=== PATIENT | female | born 1960 | race Caucasian/White ===

== ENCOUNTER → 2017-07-31 | Outpatient (CLI) | payer MEDICARE, OTHER ==
[~2017-07-31] MED LIST: /AMLO25TA PO; /LINE60TA PO; /METO25TAB PO; /MOXI40TA PO; /PRAV20TA PO; ACET50TA PO; AMLO2.5T OR; ASPI81TA83 OR; BACI50OI TOP; BACIDCA PO; CEFA1VL IV; CEFT2VL IV; DIOV320T PO; DIOVAN PO; DOXY150C PO; FERR325T OR; FLUC100T PO; FURO20TA2 PO; FURO40TA2 OR; GLIM1TAB OR; GLIM1TAB PO; HEPA1010VL IV; HYDR20IN2 PO; HYDR50TA PO; INSUHUMDS SC; INSULANT SC; INVANZ IV; IRON CR PO; KEFL500C17 PO; LANTUS INSULIN SC; LASI40TA PO; LISI10TA4 PO; MAG-OX PO; MARI2.5C PO; METF500T PO; OCEA0.65; PERC5TAB8 PO; PRAV20TA2 OR; SALI0.9I2 IV; Silvadene TOP; ULTR50TA PO
[2017-07-31 11:33] LABS: WHITE BLOOD COUNT 8.5 K/mm3 (4.0-10.0)
[2017-07-31 11:34] LABS: MEAN CORPUSCULAR HEMOGLOBIN 27.5 pg (27.0-33.0); MEAN CORPUSCULAR HGB CONC 31.9 g/dl (32.0-36.5); MEAN CORPUSCULAR VOLUME 86.1 fl (80.0-96.0); RED CELL DISTRIBUTION WIDTH 14.8 % (11.5-14.5)
[2017-07-31 13:32] LABS: ALBUMIN 3.8 GM/DL (3.2-5.2); ALBUMIN/GLOBULIN RATIO 0.97 (1.00-1.93); BILIRUBIN,TOTAL 0.4 MG/DL (0.2-1.0); CALCIUM LEVEL 8.9 MG/DL (8.5-10.1); CREATININE FOR GFR 1.71 MG/DL (0.55-1.02); GLOMERULAR FILTRATION RATE 32.6 (>51); POTASSIUM SERUM 4.5 MEQ/L (3.5-5.1); TOTAL PROTEIN 7.7 GM/DL (6.4-8.2)
== END ==
LOC: M LAB 09:35
PROVIDERS: ATTEND Family Medicine
DX: E11.9 Type 2 diabetes mellitus without complications (principal)

== ENCOUNTER → 2017-12-18 | Outpatient (CLI) | payer MEDICARE ==
[2017-12-18 11:10] LABS: ESTIMATED AVERAGE GLUCOSE 223 MG/DL (60-110); HEMOGLOBIN A1c 9.4 %
[2017-12-18 11:15] LABS: ANION GAP 7 MEQ/L (8-16); BLOOD UREA NITROGEN 39 MG/DL (7-18); CALCIUM LEVEL 8.7 MG/DL (8.5-10.1); CARBON DIOXIDE LEVEL 26 MEQ/L (21-32); CHLORIDE LEVEL 105 MEQ/L (98-107); GLOMERULAR FILTRATION RATE 32.9 (>51); GLUCOSE, FASTING 160 MG/DL (70-100); POTASSIUM SERUM 4.4 MEQ/L (3.5-5.1); SODIUM LEVEL 138 MEQ/L (136-145)
== END ==
LOC: M LAB 10:14
DX: Z01.818 Encounter for other preprocedural examination (principal); E11.9 Type 2 diabetes mellitus without complications
CPT/HCPCS: 83036

== ENCOUNTER → 2018-07-10 | Outpatient (CLI) | payer MEDICARE ==
[2018-07-10 10:18] LABS: ESTIMATED AVERAGE GLUCOSE 223 MG/DL (60-110); HEMOGLOBIN A1c 9.4 %
[2018-07-10 10:21] LABS: ALBUMIN 3.7 GM/DL (3.2-5.2); ALBUMIN/GLOBULIN RATIO 1.03 (1.00-1.93); ALKALINE PHOSPHATASE 123 U/L (45-117); ALT/SGPT 26 U/L (12-78); ANION GAP 10 MEQ/L (8-16); AST/SGOT 13 U/L (7-37); BILIRUBIN,TOTAL 0.3 MG/DL (0.2-1.0); BLOOD UREA NITROGEN 75 MG/DL (7-18); CALCIUM LEVEL 8.6 MG/DL (8.5-10.1); CARBON DIOXIDE LEVEL 19 MEQ/L (21-32); CHLORIDE LEVEL 112 MEQ/L (98-107); CHOLESTEROL LEVEL 214 MG/DL (<200); CHOLESTEROL RISK RATIO 5.487 (<5); CREATININE FOR GFR 2.25 MG/DL (0.55-1.30); GLOMERULAR FILTRATION RATE 23.7 (>51); GLUCOSE, FASTING 85 MG/DL (70-100); HDL CHOLESTEROL 39 MG/DL (>40); LDL CHOLESTEROL 136.6 MG/DL (<100); NON-HDL-C 175 MG/DL; POTASSIUM SERUM 4.9 MEQ/L (3.5-5.1); SODIUM LEVEL 141 MEQ/L (136-145); TOTAL PROTEIN 7.3 GM/DL (6.4-8.2); TRIGLYCERIDES LEVEL 192 MG/DL (<150)
== END ==
LOC: M LAB 08:50
DX: E11.9 Type 2 diabetes mellitus without complications (principal)
CPT/HCPCS: 80053

== ENCOUNTER → 2018-08-08 | Outpatient (CLI) | payer MEDICARE ==
[2018-08-08 12:25] LABS: ANION GAP 6 MEQ/L (8-16); BLOOD UREA NITROGEN 49 MG/DL (7-18); CALCIUM LEVEL 8.9 MG/DL (8.5-10.1); CARBON DIOXIDE LEVEL 29 MEQ/L (21-32); CHLORIDE LEVEL 106 MEQ/L (98-107); CREATININE FOR GFR 2.25 MG/DL (0.55-1.30); GLOMERULAR FILTRATION RATE 23.7 (>51); GLUCOSE, FASTING 132 MG/DL (70-100); POTASSIUM SERUM 5.9 MEQ/L (3.5-5.1); SODIUM LEVEL 141 MEQ/L (136-145)
== END ==
LOC: M LAB 11:31
DX: I10 Essential (primary) hypertension (principal)
CPT/HCPCS: 80048

== ENCOUNTER 2018-09-01 09:36 | Emergency (ER) | payer MEDICARE ==
[2018-09-01 10:03] LABS: BASO # 0.1 10^3/uL (0.0-0.2); BASO % 0.5 % (0.0-1.0); EOS # 0.5 10^3/uL (0.0-0.50); EOS % 5.2 % (0.0-3.0); HEMATOCRIT 33.8 % (36.0-47.0); HEMOGLOBIN 10.5 g/dl (12.0-15.5); IMMATURE GRANULOCYTE % 0.4 % (0-3.0); LYMPH # 2.2 10^3/uL (1.5-4.5); LYMPH % 23.1 % (24.0-44.0); MEAN CORPUSCULAR HEMOGLOBIN 27.3 pg (27.0-33.0); MEAN CORPUSCULAR HGB CONC 31.1 g/dl (32.0-36.5); MONO # 0.7 10^3/uL (0.0-0.8); MONO % 7.1 % (0.0-5.0); NEUTROPHILS # 5.9 10^3/uL (1.8-7.7); NEUTROPHILS % 63.7 % (36.0-66.0); PLATELET COUNT, AUTOMATED 340 10^3/uL (150-450); RED BLOOD COUNT 3.84 10^6/uL (4.00-5.40); RED CELL DISTRIBUTION WIDTH 14.5 % (11.5-14.5); WHITE BLOOD COUNT 9.3 10^3/uL (4.0-10.0)
[2018-09-01 10:38] LABS: ALBUMIN 3.8 GM/DL (3.2-5.2); ALKALINE PHOSPHATASE 116 U/L (45-117); ALT/SGPT 35 U/L (12-78); ANION GAP 8 MEQ/L (8-16); AST/SGOT 23 U/L (7-37); BILIRUBIN,DIRECT < 0.1 MG/DL (0.0-0.2); BILIRUBIN,TOTAL 0.2 MG/DL (0.2-1.0); BLOOD UREA NITROGEN 31 MG/DL (7-18); CALCIUM LEVEL 9.1 MG/DL (8.5-10.1); CARBON DIOXIDE LEVEL 25 MEQ/L (21-32); CHLORIDE LEVEL 107 MEQ/L (98-107); CREATININE FOR GFR 1.81 MG/DL (0.55-1.30); GLOMERULAR FILTRATION RATE 30.5 (>51); GLUCOSE, FASTING 106 MG/DL (70-100); SODIUM LEVEL 140 MEQ/L (136-145)
[2018-09-01 12:29] LABS: BEDSIDE GLUCOSE 175 MG/DL (70-105)
[2018-09-03 11:20] LABS: BEDSIDE GLUCOSE 100 MG/DL (70-105)
[2018-09-03 11:20] LABS: BEDSIDE GLUCOSE 140 MG/DL (70-105)
[2018-09-03 11:20] LABS: BEDSIDE GLUCOSE 111 MG/DL (70-105)
== END 2018-09-01 12:44 | disposition home or self-care (01) ==
LOC: M ED 09:36
DX: T38.3X1A Poisoning by insulin and oral hypoglycemic [antidiabetic] drugs, accidental (unintentional), initial encounter (principal); Y92.9 Unspecified place or not applicable; Y93.9 Activity, unspecified; E11.9 Type 2 diabetes mellitus without complications; D50.9 Iron deficiency anemia, unspecified; Z79.82 Long term (current) use of aspirin; Z79.4 Long term (current) use of insulin; Z79.899 Other long term (current) drug therapy; Z88.1 Allergy status to other antibiotic agents
CPT/HCPCS: 80076

== ENCOUNTER → 2019-05-06 | Outpatient (CLI) | payer MEDICARE ==
[~2019-05-06] MED LIST changes: -/AMLO25TA PO; -/LINE60TA PO; -/METO25TAB PO; -/MOXI40TA PO; -/PRAV20TA PO; -ACET50TA PO; +AVEL1TAB2 PO; +BACI500O74 TOP; -BACI50OI TOP; +CEFA1INJ IV; -CEFA1VL IV; +CEFT1INJ65 IV; -CEFT2VL IV; +HYDR-4267 PO; -HYDR50TA PO; +LANTINJ4 SC; +LISI10TA4; +MAPA500T17 PO; +METO1TAB87 PO; +NORV2TAB PO; +PRAV1TAB39 PO; +ZYVO100T PO
[2019-05-06 14:07] LABS: CALCIUM LEVEL 8.6 MG/DL (8.8-10.2); CREATININE FOR GFR 1.98 MG/DL (0.55-1.30); GLOMERULAR FILTRATION RATE 27.4 (>45); POTASSIUM SERUM 4.6 MEQ/L (3.5-5.1)
== END ==
LOC: M WUC 09:18
PROVIDERS: ATTEND Family Medicine
DX: Z01.818 Encounter for other preprocedural examination (principal)

== ENCOUNTER → 2020-09-23 | Outpatient (CLI) | payer MEDICARE ==
[2020-09-23 13:28] LABS: HEMATOCRIT 35.9 % (36.0-47.0); HEMOGLOBIN 10.8 g/dl (12.0-15.5); MEAN CORPUSCULAR HEMOGLOBIN 26.2 pg (27.0-33.0); MEAN CORPUSCULAR HGB CONC 30.1 g/dl (32.0-36.5); MEAN CORPUSCULAR VOLUME 86.9 fl (80.0-96.0); PLATELET COUNT, AUTOMATED 287 10^3/uL (150-450); RED BLOOD COUNT 4.13 10^6/uL (4.00-5.40); WHITE BLOOD COUNT 9.7 10^3/uL (4.0-10.0)
[2020-09-23 13:33] LABS: BILIRUBIN,TOTAL 0.4 MG/DL (0.2-1.0); CALCIUM LEVEL 9.5 MG/DL (8.8-10.2); CHOLESTEROL RISK RATIO 3.545 (<5); CREATININE FOR GFR 1.94 MG/DL (0.55-1.30); GLOMERULAR FILTRATION RATE 27.9 (>45); POTASSIUM SERUM 4.8 MEQ/L (3.5-5.1); TOTAL PROTEIN 7.8 GM/DL (6.4-8.2)
[2020-09-23 14:10] LABS: MAU/CREAT RATIO 114.8 MCG/MG (0.0-30.0)
== END ==
LOC: M WUC 08:31
PROVIDERS: ATTEND Family Medicine
DX: E11.9 Type 2 diabetes mellitus without complications (principal)

== ENCOUNTER → 2022-10-26 | Outpatient (CLI) | payer MEDICARE ==
[~2022-10-26] MED LIST changes: -DOXY150C PO; +DOXY150C3 PO; +LISI10TA22; -LISI10TA4
[2022-10-26 09:11] LABS: HEMATOCRIT 33.8 % (36.0-47.0); HEMOGLOBIN 10.4 g/dl (12.0-15.5); MEAN CORPUSCULAR HEMOGLOBIN 26.4 pg (27.0-33.0); MEAN CORPUSCULAR HGB CONC 30.8 g/dl (32.0-36.5); MEAN CORPUSCULAR VOLUME 85.8 fl (80.0-96.0); PLATELET COUNT, AUTOMATED 350 10^3/uL (150-450); RED BLOOD COUNT 3.94 10^6/uL (4.00-5.40); WHITE BLOOD COUNT 9.8 10^3/uL (4.0-10.0)
[2022-10-26 09:43] LABS: CREATININE, URINE 28.8 MG/DL; CREATININE,RANDOM URINE 28.8 MG/DL; MAU/CREAT RATIO 152.7 MCG/MG (0.0-30.0)
[2022-10-26 09:44] LABS: BILIRUBIN,TOTAL 0.4 MG/DL (0.3-1.2); CALCIUM LEVEL 9.2 MG/DL (8.3-10.6); CHOLESTEROL RISK RATIO 3.42 (<5); CREATININE FOR GFR 1.71 MG/DL (0.55-1.30); GLOMERULAR FILTRATION RATE 32.1 (>45); HDL CHOLESTEROL 38.3 MG/DL (>40); LDL CHOLESTEROL 56.1 MG/DL (<100); POTASSIUM SERUM 4.5 MMOL/L (3.5-5.1); TOTAL PROTEIN 7.3 G/DL (5.7-8.2)
== END ==
LOC: M LAB 08:33
PROVIDERS: ATTEND Family Medicine
DX: E11.9 Type 2 diabetes mellitus without complications (principal)

== ENCOUNTER 2023-05-13 16:14 | Inpatient (IN) | payer MEDICARE ==
[~2023-05-13] VITALS: Ht 157.5 cm; Wt 90.6 kg
[2023-05-13 17:20] VITALS: BP 158/89; TEMP 98.1; O2SAT 93
[2023-05-13] MEDS ORDERED: DEXTROSE 50% 50ML SYRINGE IV PRN (18:05)
[2023-05-13] MEDS ORDERED: GLUCOSE 4GM CHEW TABLET PO PRN (18:05)
[2023-05-13] MEDS ORDERED: GLUCAGON INJ 1MG VIAL SC PRN (18:05)
[2023-05-13 18:46] LABS: HEMATOCRIT 27.5 % (36.0-47.0); HEMOGLOBIN 8.8 g/dl (12.0-15.5); MEAN CORPUSCULAR HEMOGLOBIN 26.3 pg (27.0-33.0); MEAN CORPUSCULAR VOLUME 82.3 fl (80.0-96.0); PLATELET COUNT, AUTOMATED 413 10^3/uL (150-450); RED BLOOD COUNT 3.34 10^6/uL (4.00-5.40); WHITE BLOOD COUNT 25.9 10^3/uL (4.0-10.0)
[2023-05-13 19:01] LABS: INR 1.06
[2023-05-13 19:18] LABS: BILIRUBIN,TOTAL 0.6 MG/DL (0.3-1.2); CALCIUM LEVEL 8.5 MG/DL (8.3-10.6); CREATININE FOR GFR 3.37 MG/DL (0.55-1.30); GLOMERULAR FILTRATION RATE 14.6 (>45); POTASSIUM SERUM 4.4 MMOL/L (3.5-5.1); TOTAL PROTEIN 7.1 G/DL (5.7-8.2)
[2023-05-13] MEDS ORDERED: MED REC IN PROGRESS XX SCH (19:50)
[2023-05-13] MEDS ORDERED: AMLO1TAB25 PO (20:04)
[2023-05-13] MEDS ORDERED: METO100T5 PO (20:04)
[2023-05-13] MEDS ORDERED: JARD1TAB PO (20:04)
[2023-05-13] MEDS ORDERED: ATOR40TA75 PO (20:04)
[2023-05-13] MEDS: INSULIN LISPRO (NovoLOG) PER UNIT SC SCH ×2 (20:08→22:37)
[2023-05-13] MEDS ORDERED: FURO40TA2 PO (20:09)
[2023-05-13] MEDS ORDERED: ACET1TAB55 PO (20:09)
[2023-05-13] MEDS ORDERED: ASPI81TA26 PO (20:09)
[2023-05-13 20:10] VITALS: BP 154/82; TEMP 102.5; O2SAT 96
[2023-05-13] MEDS ORDERED: HOME MED LIST COMPLETE! XX SCH (20:10)
[2023-05-13] MEDS ORDERED: NS 500 ML IV ONE (20:15)
[2023-05-13] MEDS: ACETAMINOPHEN TAB 650MG DOSE (2X325MG) PO PRN (20:35)
[2023-05-13] MEDS: HEPARIN SOD (PORCINE) 5000UNITS/ML 1ML VIAL/SYRINGE SQ SCH (21:23)
[2023-05-13] MEDS: METOPROLOL TARTRATE 100MG TAB PO SCH (21:23)
[2023-05-13 21:45] VITALS: TEMP 102.7
[2023-05-13] MEDS: LR 1,000 ML IV SCH (22:44)
[2023-05-13] MEDS: CEFTAROLINE FOSAMIL 300 MG in D5W 50 ML IV SCH (22:44)
[2023-05-13 23:00] VITALS: TEMP 101.4
[2023-05-13] MEDS ORDERED: ACETAMINOPHEN 1000MG 100ML IV BAG IV ONE (23:59)
[2023-05-14 02:20] VITALS: TEMP 97.3
[2023-05-14 05:41] VITALS: BP 129/50; TEMP 99.2; O2SAT 95
[2023-05-14 06:26] LABS: BASO # 0.1 10^3/uL (0.0-0.2); BASO % 0.5 % (0.0-1.0); EOS # 0.2 10^3/uL (0.0-0.5); EOS % 0.8 % (0.0-3.0); HEMATOCRIT 24.7 % (36.0-47.0); HEMOGLOBIN 7.9 g/dl (12.0-15.5); LYMPH # 2.1 10^3/uL (1.5-5.0); LYMPH % 8.5 % (24.0-44.0); MEAN CORPUSCULAR HEMOGLOBIN 26.9 pg (27.0-33.0); MONO % 8.9 % (2.0-8.0); NEUTROPHILS # 19.3 10^3/uL (1.5-8.5); NEUTROPHILS % 80.3 % (36.0-66.0); PLATELET COUNT, AUTOMATED 389 10^3/uL (150-450); RED BLOOD COUNT 2.94 10^6/uL (4.00-5.40); WHITE BLOOD COUNT 24.1 10^3/uL (4.0-10.0)
[2023-05-14 06:45] LABS: CALCIUM LEVEL 7.9 MG/DL (8.3-10.6); CREATININE FOR GFR 3.54 MG/DL (0.55-1.30); GLOMERULAR FILTRATION RATE 13.8 (>45); POTASSIUM SERUM 4.6 MMOL/L (3.5-5.1)
[2023-05-14 06:50] LABS: MONO # 2.1 10^3/uL (0.0-0.8)
[2023-05-14] MEDS: ASPIRIN 81MG ENTERIC TABLET PO SCH (07:56)
[2023-05-14] MEDS: HEPARIN SOD (PORCINE) 5000UNITS/ML 1ML VIAL/SYRINGE SQ SCH ×2 (07:57→21:18)
[2023-05-14] MEDS: INSULIN LISPRO (NovoLOG) PER UNIT SC SCH ×4 (08:31→20:53)
[2023-05-14] MEDS: LR 1,000 ML IV SCH (08:31)
[2023-05-14] MEDS: ATORVASTATIN 20 MG TAB PO SCH (08:31)
[2023-05-14] MEDS: METOPROLOL TARTRATE 100MG TAB PO SCH ×2 (08:46→21:17)
[2023-05-14] MEDS ORDERED: FUROSEMIDE 40 MG TAB PO SCH (09:00)
[2023-05-14] MEDS: CEFTAROLINE FOSAMIL 300 MG in D5W 50 ML IV SCH ×2 (10:26→22:41)
[2023-05-14] MEDS ORDERED: CEFTAROLINE FOSAMIL 200 MG in D5W 50 ML IV SCH (13:40)
[2023-05-14 14:00] VITALS: BP 152/70; TEMP 97; O2SAT 96
[2023-05-14] MEDS ORDERED: GENTAMICIN SULF 80MG/2ML VIAL As Ordered ONE (15:37)
[2023-05-14] MEDS ORDERED: LIDOCAINE 2% MDV 20ML VIAL As Ordered ONE (15:38)
[2023-05-14 15:50] VITALS: BP 145/67; TEMP 98.6; O2SAT 95
[2023-05-14] MEDS ORDERED: fentaNYL 100 MCG/2 ML INJECTION As Ordered ONE (16:58)
[2023-05-14] MEDS ORDERED: MIDAZOLAM INJ 2MG/2ML VIAL As Ordered ONE (16:58)
[2023-05-14] MEDS ORDERED: LIDOCAINE 2% 100MG/5ML SDV (FOR ANES.) As Ordered ONE (16:58)
[2023-05-14] MEDS ORDERED: propofoL 200 MG/20 ML VIAL As Ordered ONE (16:58)
[2023-05-14] MEDS ORDERED: ONDANSETRON 4MG 2ML VIAL IV PRN (17:40)
[2023-05-14] MEDS ORDERED: LR 1,000 ML IV SCH (17:40)
[2023-05-14] MEDS ORDERED: fentaNYL 100 MCG/2 ML INJECTION IV PRN (17:40)
[2023-05-14] MEDS ORDERED: oxyCODONE 5MG TAB PO PRN (17:40)
[2023-05-14] MEDS ORDERED: HYDROMORPHONE HCL 0.5 MG/ 0.5 ML SYRINGE IV PRN (17:40)
[2023-05-14 18:15] VITALS: BP 149/69; TEMP 100.8; O2SAT 92
[2023-05-14 20:00] VITALS: BP 148/69; TEMP 99; O2SAT 91
[2023-05-14] MEDS ORDERED: LEVEMIR (INSULIN DETEMIR) 1 UNITS/0.01ML SC SCH (21:00)
[2023-05-15 00:18] VITALS: BP 140/66; TEMP 99.3; O2SAT 91
[2023-05-15 05:41] VITALS: BP 138/65; TEMP 98.6; O2SAT 92
[2023-05-15 06:04] LABS: BASO # 0.1 10^3/uL (0.0-0.2); BASO % 0.4 % (0.0-1.0); EOS # 0.1 10^3/uL (0.0-0.5); EOS % 0.6 % (0.0-3.0); HEMATOCRIT 24.6 % (36.0-47.0); HEMOGLOBIN 7.8 g/dl (12.0-15.5); LYMPH # 1.9 10^3/uL (1.5-5.0); LYMPH % 7.4 % (24.0-44.0); MEAN CORPUSCULAR HEMOGLOBIN 26.4 pg (27.0-33.0); MEAN CORPUSCULAR HGB CONC 31.7 g/dl (32.0-36.5); MEAN CORPUSCULAR VOLUME 83.1 fl (80.0-96.0); MONO % 7.6 % (2.0-8.0); NEUTROPHILS # 20.7 10^3/uL (1.5-8.5); NEUTROPHILS % 82.8 % (36.0-66.0); PLATELET COUNT, AUTOMATED 382 10^3/uL (150-450); RED BLOOD COUNT 2.96 10^6/uL (4.00-5.40)
[2023-05-15 06:19] LABS: CALCIUM LEVEL 7.9 MG/DL (8.3-10.6); CREATININE FOR GFR 4.24 MG/DL (0.55-1.30); GLOMERULAR FILTRATION RATE 11.2 (>45); POTASSIUM SERUM 4.2 MMOL/L (3.5-5.1)
[2023-05-15 06:46] LABS: MONO # 1.9 10^3/uL (0.0-0.8)
[2023-05-15] MEDS: INSULIN LISPRO (NovoLOG) PER UNIT SC SCH ×4 (07:30→21:00)
[2023-05-15] MEDS: ATORVASTATIN 20 MG TAB PO SCH (09:45)
[2023-05-15] MEDS: HEPARIN SOD (PORCINE) 5000UNITS/ML 1ML VIAL/SYRINGE SQ SCH ×2 (09:45→21:51)
[2023-05-15] MEDS: ASPIRIN 81MG ENTERIC TABLET PO SCH (09:45)
[2023-05-15] MEDS: CEFTAROLINE FOSAMIL 300 MG in D5W 50 ML IV SCH (09:46)
[2023-05-15] MEDS: METOPROLOL TARTRATE 100MG TAB PO SCH ×2 (09:49→21:51)
[2023-05-15] MEDS ORDERED: FUROSEMIDE 100MG/10ML VIAL IV ONE (10:00)
[2023-05-15] MEDS: ONDANSETRON 4MG 2ML VIAL IV PRN (10:24)
[2023-05-15 14:00] VITALS: BP 132/59; TEMP 98.2; O2SAT 90
[2023-05-15 20:00] VITALS: BP 135/60; TEMP 98.8; O2SAT 92
[2023-05-15] MEDS ORDERED: LEVEMIR (INSULIN DETEMIR) 1 UNITS/0.01ML SC SCH (21:00)
[2023-05-15] MEDS: LEVEMIR (INSULIN DETEMIR) 1 UNITS/0.01ML SC SCH (21:00)
[2023-05-15] MEDS ORDERED: CEFTAROLINE FOSAMIL 200 MG in D5W 50 ML IV SCH ×2 (22:00→23:00)
[2023-05-16 05:01] LABS: BASO # 0.1 10^3/uL (0.0-0.2); BASO % 0.4 % (0.0-1.0); EOS # 0.4 10^3/uL (0.0-0.5); EOS % 1.7 % (0.0-3.0); HEMATOCRIT 24.7 % (36.0-47.0); HEMOGLOBIN 7.6 g/dl (12.0-15.5); LYMPH # 1.6 10^3/uL (1.5-5.0); LYMPH % 6.9 % (24.0-44.0); MEAN CORPUSCULAR HGB CONC 30.8 g/dl (32.0-36.5); MEAN CORPUSCULAR VOLUME 84.6 fl (80.0-96.0); NEUTROPHILS # 19.1 10^3/uL (1.5-8.5); NEUTROPHILS % 82.9 % (36.0-66.0); PLATELET COUNT, AUTOMATED 380 10^3/uL (150-450); RED BLOOD COUNT 2.92 10^6/uL (4.00-5.40)
[2023-05-16 05:22] LABS: ALBUMIN 2.1 G/DL (3.2-5.2); BLOOD UREA NITROGEN 69 MG/DL (9-23); CALCIUM LEVEL 7.6 MG/DL (8.3-10.6); CARBON DIOXIDE LEVEL 18 MMOL/L (20-31); CHLORIDE LEVEL 102 MMOL/L (98-107); CREATININE FOR GFR 4.78 MG/DL (0.55-1.30); GLOMERULAR FILTRATION RATE 9.8 (>45); GLUCOSE, FASTING 105 MG/DL (74-106); PHOSPHORUS LEVEL 6.5 MG/DL (2.4-5.1); POTASSIUM SERUM 4.6 MMOL/L (3.5-5.1); SODIUM LEVEL 134 MMOL/L (136-145)
[2023-05-16 05:56] LABS: MONO # 1.6 10^3/uL (0.0-0.8)
[2023-05-16 06:00] VITALS: BP 126/57; TEMP 98.6; O2SAT 91
[2023-05-16] MEDS ORDERED: CLINDAMYCIN 600 MG in IV 1 EA IV SCH (08:45)
[2023-05-16] MEDS: INSULIN LISPRO (NovoLOG) PER UNIT SC SCH ×4 (08:48→21:00)
[2023-05-16] MEDS: METOPROLOL TARTRATE 100MG TAB PO SCH ×2 (08:49→21:13)
[2023-05-16] MEDS: ASPIRIN 81MG ENTERIC TABLET PO SCH (08:49)
[2023-05-16] MEDS: HEPARIN SOD (PORCINE) 5000UNITS/ML 1ML VIAL/SYRINGE SQ SCH ×2 (08:49→21:09)
[2023-05-16] MEDS: ATORVASTATIN 20 MG TAB PO SCH (08:49)
[2023-05-16] MEDS: LACTOBACILLUS ACIDOPHILUS CAP (BACID) PO SCH ×4 (08:52→21:09)
[2023-05-16] MEDS: SODIUM BICARBONATE 325 MG TAB PO SCH ×4 (09:00→21:09)
[2023-05-16] MEDS: CLINDAMYCIN 150MG CAPSULE PO SCH ×3 (09:56→21:09)
[2023-05-16 10:37] LABS: CARCINOEMBRYONIC ANTIGEN < 2.0 NG/ML (<2.5)
[2023-05-16 10:52] LABS: CA19-9 TUMOR MARKER,CARBOHYDRA < 1.2 U/ML (<35.0)
[2023-05-16 12:12] LABS: HEMATOCRIT 23.9 % (36.0-47.0); HEMOGLOBIN 7.5 g/dl (12.0-15.5)
[2023-05-16] MEDS: CALCIUM ACETATE 667MG GELCAP PO SCH ×2 (12:46→17:38)
[2023-05-16 14:00] VITALS: BP 144/60; TEMP 98.1; O2SAT 89
[2023-05-16 20:00] VITALS: BP 150/64; TEMP 98.6; O2SAT 89
[2023-05-16] MEDS: LEVEMIR (INSULIN DETEMIR) 1 UNITS/0.01ML SC SCH (21:10)
[2023-05-16 21:25] VITALS: O2SAT 85
[2023-05-17] VITALS (12 sets, daily range): BP systolic 134–154; BP diastolic 58–67; TEMP 97.7–101.2; O2SAT 80–93
[2023-05-17] MEDS: CLINDAMYCIN 150MG CAPSULE PO SCH (05:10)
[2023-05-17 06:41] LABS: BASO # 0.1 10^3/uL (0.0-0.2); BASO % 0.4 % (0.0-1.0); EOS # 0.4 10^3/uL (0.0-0.5); HEMATOCRIT 24.7 % (36.0-47.0); HEMOGLOBIN 7.8 g/dl (12.0-15.5); LYMPH # 1.5 10^3/uL (1.5-5.0); LYMPH % 6.8 % (24.0-44.0); MEAN CORPUSCULAR HEMOGLOBIN 26.3 pg (27.0-33.0); MEAN CORPUSCULAR HGB CONC 31.6 g/dl (32.0-36.5); MEAN CORPUSCULAR VOLUME 83.2 fl (80.0-96.0); MONO % 7.8 % (2.0-8.0); NEUTROPHILS # 17.8 10^3/uL (1.5-8.5); NEUTROPHILS % 80.8 % (36.0-66.0); PLATELET COUNT, AUTOMATED 422 10^3/uL (150-450); RED BLOOD COUNT 2.97 10^6/uL (4.00-5.40)
[2023-05-17 07:00] LABS: MONO # 1.7 10^3/uL (0.0-0.8)
[2023-05-17 07:12] LABS: C REACTIVE PROTEIN QUANTITATIV 19.4 MG/DL (<1.0); CALCIUM LEVEL 7.9 MG/DL (8.3-10.6); CREATININE FOR GFR 5.27 MG/DL (0.55-1.30); GLOMERULAR FILTRATION RATE 8.7 (>45); POTASSIUM SERUM 4.6 MMOL/L (3.5-5.1)
[2023-05-17] MEDS: ATORVASTATIN 20 MG TAB PO SCH (08:29)
[2023-05-17] MEDS: INSULIN LISPRO (NovoLOG) PER UNIT SC SCH ×4 (08:29→20:41)
[2023-05-17] MEDS: HEPARIN SOD (PORCINE) 5000UNITS/ML 1ML VIAL/SYRINGE SQ SCH ×2 (08:29→20:53)
[2023-05-17] MEDS: ASPIRIN 81MG ENTERIC TABLET PO SCH (08:31)
[2023-05-17] MEDS: METOPROLOL TARTRATE 100MG TAB PO SCH ×2 (08:31→20:55)
[2023-05-17] MEDS: SODIUM BICARBONATE 325 MG TAB PO SCH ×3 (08:31→20:53)
[2023-05-17] MEDS: CALCIUM ACETATE 667MG GELCAP PO SCH ×3 (08:31→17:01)
[2023-05-17] MEDS: LACTOBACILLUS ACIDOPHILUS CAP (BACID) PO SCH ×4 (08:31→20:53)
[2023-05-17] MEDS: DOXYCYCLINE HYCLATE 100 MG in D5W MINI-BAG PLUS 100 ML IV SCH ×2 (09:42→20:52)
[2023-05-17] MEDS: LEVEMIR (INSULIN DETEMIR) 1 UNITS/0.01ML SC SCH (20:53)
[2023-05-17] MEDS ORDERED: IPRATROPIUM 0.5MG/ALBUTEROL 2.5MG INH SOL UD 3ML (DUONEB) NEB STA (23:26)
[2023-05-17] MEDS ORDERED: guaiFENesin ER 600 MG TAB PO ONE (23:40)
[2023-05-17] MEDS: ACETAMINOPHEN TAB 650MG DOSE (2X325MG) PO PRN (23:40)
[2023-05-18] VITALS (10 sets, daily range): BP systolic 136–152; BP diastolic 61–66; TEMP 98.1–101.4; O2SAT 91–96
[2023-05-18] MEDS ORDERED: IPRATROPIUM 0.5MG/ALBUTEROL 2.5MG INH SOL UD 3ML (DUONEB) NEB PRN (00:15)
[2023-05-18 00:57] LABS: BASO # 0.1 10^3/uL (0.0-0.2); BASO % 0.3 % (0.0-1.0); EOS # 0.3 10^3/uL (0.0-0.5); EOS % 1.2 % (0.0-3.0); HEMOGLOBIN 7.6 g/dl (12.0-15.5); LYMPH # 1.8 10^3/uL (1.5-5.0); LYMPH % 7.6 % (24.0-44.0); MEAN CORPUSCULAR HGB CONC 31.7 g/dl (32.0-36.5); MEAN CORPUSCULAR VOLUME 82.2 fl (80.0-96.0); MONO % 7.6 % (2.0-8.0); NEUTROPHILS # 18.4 10^3/uL (1.5-8.5); NEUTROPHILS % 80.3 % (36.0-66.0); PLATELET COUNT, AUTOMATED 441 10^3/uL (150-450); RED BLOOD COUNT 2.92 10^6/uL (4.00-5.40)
[2023-05-18 01:15] LABS: CALCIUM LEVEL 8.3 MG/DL (8.3-10.6); CREATININE FOR GFR 5.78 MG/DL (0.55-1.30); GLOMERULAR FILTRATION RATE 7.8 (>45); MAGNESIUM LEVEL 2.4 MG/DL (1.8-2.4); POTASSIUM SERUM 4.8 MMOL/L (3.5-5.1)
[2023-05-18 01:31] LABS: MONO # 1.8 10^3/uL (0.0-0.8)
[2023-05-18] MEDS: PIPERACILLIN/TAZOBACTAM SOD 2.25 GM in D5W MINI-BAG PLUS 50 ML IV SCH ×3 (03:14→17:53)
[2023-05-18 05:56] LABS: BASO # 0.1 10^3/uL (0.0-0.2); BASO % 0.4 % (0.0-1.0); EOS # 0.3 10^3/uL (0.0-0.5); EOS % 1.3 % (0.0-3.0); HEMATOCRIT 25.1 % (36.0-47.0); HEMOGLOBIN 7.9 g/dl (12.0-15.5); LYMPH # 1.6 10^3/uL (1.5-5.0); LYMPH % 6.7 % (24.0-44.0); MEAN CORPUSCULAR HEMOGLOBIN 26.4 pg (27.0-33.0); MEAN CORPUSCULAR HGB CONC 31.5 g/dl (32.0-36.5); MEAN CORPUSCULAR VOLUME 83.9 fl (80.0-96.0); MONO % 8.3 % (2.0-8.0); NEUTROPHILS # 18.3 10^3/uL (1.5-8.5); NEUTROPHILS % 79.5 % (36.0-66.0); PLATELET COUNT, AUTOMATED 416 10^3/uL (150-450); RED BLOOD COUNT 2.99 10^6/uL (4.00-5.40); WHITE BLOOD COUNT 23.1 10^3/uL (4.0-10.0)
[2023-05-18 06:10] LABS: C REACTIVE PROTEIN QUANTITATIV 16.4 MG/DL (<1.0)
[2023-05-18 06:11] LABS: CALCIUM LEVEL 8.5 MG/DL (8.3-10.6); CREATININE FOR GFR 6.08 MG/DL (0.55-1.30); GLOMERULAR FILTRATION RATE 7.4 (>45); PERCENT SATURATION 10.4 % (13.2-45.0); POTASSIUM SERUM 4.7 MMOL/L (3.5-5.1)
[2023-05-18 06:14] LABS: FERRITIN 533.3 NG/ML (7.3-270.7)
[2023-05-18 06:26] LABS: MONO # 1.9 10^3/uL (0.0-0.8)
[2023-05-18 07:17] LABS: APPEARANCE, URINE CLOUDY (CLEAR); BACTERIA, URINE AUTO 1+ (NEGATIVE); BILIRUBIN, URINE AUTO NEGATIVE (NEGATIVE); BLOOD, URINE BLOOD 3+ (NEGATIVE); COLOR, URINE AMBER (YELLOW); GLUCOSE, URINE (UA) AUTO NEGATIVE (NEGATIVE); KETONE, URINE AUTO NEGATIVE (NEGATIVE); LEUKOCYTE ESTERASE, URINE AUTO TRACE (NEGATIVE); MUCUS, URINE SMALL (NEGATIVE); NITRITE, URINE AUTO NEGATIVE (NEGATIVE); PROTEIN, URINE AUTO 1+ mg/dL (NEGATIVE); RBC, URINE AUTO TNTC /HPF (0-3); SPECIFIC GRAVITY URINE AUTO 1.015 (1.002-1.035); SQUAMOUS EPITHELIAL CELL UR AU 0 /HPF (0-6); WBC, URINE AUTO 15 /HPF (0-3)
[2023-05-18 07:19] LABS: CREATININE,RANDOM URINE 177.9 MG/DL
[2023-05-18] MEDS ORDERED: cefTRIAXone SOD 2 GM in D5W MINI-BAG PLUS 50 ML IV SCH (07:40)
[2023-05-18] MEDS: INSULIN LISPRO (NovoLOG) PER UNIT SC SCH ×4 (08:33→21:00)
[2023-05-18] MEDS: CALCIUM ACETATE 667MG GELCAP PO SCH ×3 (08:33→17:48)
[2023-05-18] MEDS: ATORVASTATIN 20 MG TAB PO SCH (08:33)
[2023-05-18] MEDS: SODIUM BICARBONATE 325 MG TAB PO SCH ×3 (08:34→20:45)
[2023-05-18] MEDS: ASPIRIN 81MG ENTERIC TABLET PO SCH (08:34)
[2023-05-18] MEDS: METOPROLOL TARTRATE 100MG TAB PO SCH ×2 (08:34→20:49)
[2023-05-18] MEDS: LACTOBACILLUS ACIDOPHILUS CAP (BACID) PO SCH ×4 (08:34→20:45)
[2023-05-18] MEDS: HEPARIN SOD (PORCINE) 5000UNITS/ML 1ML VIAL/SYRINGE SQ SCH ×2 (08:35→20:47)
[2023-05-18] MEDS: DOXYCYCLINE HYCLATE 100 MG in D5W MINI-BAG PLUS 100 ML IV SCH ×2 (08:35→20:47)
[2023-05-18] MEDS: FUROSEMIDE 100MG/10ML VIAL IV SCH ×2 (12:07→20:47)
[2023-05-18] MEDS: ACETAMINOPHEN TAB 650MG DOSE (2X325MG) PO PRN ×2 (14:45→20:53)
[2023-05-18] MEDS: LEVEMIR (INSULIN DETEMIR) 1 UNITS/0.01ML SC SCH (21:15)
[2023-05-18] MEDS: ONDANSETRON 4MG 2ML VIAL IV PRN (22:48)
[2023-05-19] VITALS (12 sets, daily range): BP systolic 129–137; BP diastolic 57–66; TEMP 97.2–101.2; O2SAT 91–95
[2023-05-19] MEDS ORDERED: ACETAMINOPHEN 1000MG 100ML IV BAG IV ONE (01:10)
[2023-05-19] MEDS: PIPERACILLIN/TAZOBACTAM SOD 2.25 GM in D5W MINI-BAG PLUS 50 ML IV SCH ×3 (02:39→21:13)
[2023-05-19 06:00] LABS: BASO # 0.1 10^3/uL (0.0-0.2); BASO % 0.3 % (0.0-1.0); EOS # 0.4 10^3/uL (0.0-0.5); EOS % 1.4 % (0.0-3.0); HEMATOCRIT 23.7 % (36.0-47.0); HEMOGLOBIN 7.6 g/dl (12.0-15.5); LYMPH # 1.4 10^3/uL (1.5-5.0); LYMPH % 5.5 % (24.0-44.0); MEAN CORPUSCULAR HGB CONC 32.1 g/dl (32.0-36.5); MEAN CORPUSCULAR VOLUME 81.2 fl (80.0-96.0); MONO % 7.9 % (2.0-8.0); NEUTROPHILS # 20.4 10^3/uL (1.5-8.5); NEUTROPHILS % 80.9 % (36.0-66.0); PLATELET COUNT, AUTOMATED 440 10^3/uL (150-450); RED BLOOD COUNT 2.92 10^6/uL (4.00-5.40); WHITE BLOOD COUNT 25.3 10^3/uL (4.0-10.0)
[2023-05-19 06:23] LABS: BLOOD UREA NITROGEN 101 MG/DL (9-23); CALCIUM LEVEL 7.8 MG/DL (8.3-10.6); CARBON DIOXIDE LEVEL 19 MMOL/L (20-31); CHLORIDE LEVEL 97 MMOL/L (98-107); CREATININE FOR GFR 6.67 MG/DL (0.55-1.30); GLOMERULAR FILTRATION RATE 6.7 (>45); GLUCOSE, FASTING 165 MG/DL (74-106); POTASSIUM SERUM 4.7 MMOL/L (3.5-5.1); SODIUM LEVEL 129 MMOL/L (136-145)
[2023-05-19] MEDS: DOXYCYCLINE HYCLATE 100 MG in D5W MINI-BAG PLUS 100 ML IV SCH (10:04)
[2023-05-19] MEDS: CALCIUM ACETATE 667MG GELCAP PO SCH ×3 (10:05→18:32)
[2023-05-19] MEDS: HEPARIN SOD (PORCINE) 5000UNITS/ML 1ML VIAL/SYRINGE SQ SCH ×2 (10:05→21:17)
[2023-05-19] MEDS: INSULIN LISPRO (NovoLOG) PER UNIT SC SCH ×4 (10:05→21:00)
[2023-05-19] MEDS: ATORVASTATIN 20 MG TAB PO SCH (10:06)
[2023-05-19] MEDS: SODIUM BICARBONATE 325 MG TAB PO SCH ×3 (10:06→21:16)
[2023-05-19] MEDS: LACTOBACILLUS ACIDOPHILUS CAP (BACID) PO SCH ×4 (10:06→21:15)
[2023-05-19] MEDS: ASPIRIN 81MG ENTERIC TABLET PO SCH (10:06)
[2023-05-19] MEDS: METOPROLOL TARTRATE 100MG TAB PO SCH ×2 (10:10→21:16)
[2023-05-19] MEDS ORDERED: VANCOMYCIN HCL 1,000 MG, VIAL MATE ADAPTER 1 EACH in D5W 250 ML IV SCH (11:20)
[2023-05-19 11:29] LABS: HEPATITIS B SURFACE ANTIBODY NEGATIVE (POSITIVE)
[2023-05-19 11:41] LABS: HEPATITIS B SURFACE ANTIGEN NEGATIVE (NEGATIVE)
[2023-05-19 12:02] LABS: HEPATITIS C VIRUS ABY INDEX 0.09 INDEX (<0.8)
[2023-05-19] MEDS ORDERED: VANCOMYCIN HCL 1,000 MG, VIAL MATE ADAPTER 1 EACH in D5W 250 ML IV ONE (13:00)
[2023-05-19] MEDS ORDERED: VANCOMYCIN HCL 750 MG, VIAL MATE ADAPTER 1 EACH in D5W 250 ML IV ONE (14:00)
[2023-05-19] MEDS: ACETAMINOPHEN TAB 650MG DOSE (2X325MG) PO PRN (18:32)
[2023-05-19] MEDS: LEVEMIR (INSULIN DETEMIR) 1 UNITS/0.01ML SC SCH (21:16)
[2023-05-20] VITALS (7 sets, daily range): BP systolic 129–171; BP diastolic 59–80; TEMP 96.3–98.9; O2SAT 90–95
[2023-05-20] MEDS: PIPERACILLIN/TAZOBACTAM SOD 2.25 GM in D5W MINI-BAG PLUS 50 ML IV SCH ×3 (03:58→20:21)
[2023-05-20] MEDS ORDERED: HEPARIN 1,000UNITS/ML 10ML VIAL (FOR RADIOLOGY & DIALYSIS ONLY) IV PRN (06:00)
[2023-05-20] MEDS ORDERED: HEPARIN 1,000UNITS/ML 10ML VIAL (FOR RADIOLOGY & DIALYSIS ONLY) XX SCH (06:00)
[2023-05-20] MEDS ORDERED: SODIUM CHLORIDE 0.9% 1000ML IV PRN (06:00)
[2023-05-20 06:05] LABS: BASO # 0.1 10^3/uL (0.0-0.2); BASO % 0.4 % (0.0-1.0); EOS # 0.4 10^3/uL (0.0-0.5); EOS % 1.6 % (0.0-3.0); HEMATOCRIT 26.2 % (36.0-47.0); HEMOGLOBIN 8.4 g/dl (12.0-15.5); LYMPH # 1.5 10^3/uL (1.5-5.0); LYMPH % 5.5 % (24.0-44.0); MEAN CORPUSCULAR HEMOGLOBIN 26.5 pg (27.0-33.0); MEAN CORPUSCULAR HGB CONC 32.1 g/dl (32.0-36.5); MEAN CORPUSCULAR VOLUME 82.6 fl (80.0-96.0); MONO % 6.9 % (2.0-8.0); NEUTROPHILS # 22.9 10^3/uL (1.5-8.5); NEUTROPHILS % 81.5 % (36.0-66.0); PLATELET COUNT, AUTOMATED 446 10^3/uL (150-450); RED BLOOD COUNT 3.17 10^6/uL (4.00-5.40)
[2023-05-20 06:19] LABS: CALCIUM LEVEL 7.4 MG/DL (8.3-10.6); CREATININE FOR GFR 7.74 MG/DL (0.55-1.30); GLOMERULAR FILTRATION RATE 5.6 (>45); POTASSIUM SERUM 5.1 MMOL/L (3.5-5.1)
[2023-05-20 06:22] LABS: MONO # 1.9 10^3/uL (0.0-0.8)
[2023-05-20] MEDS: ACETAMINOPHEN TAB 650MG DOSE (2X325MG) PO PRN (06:25)
[2023-05-20] MEDS: INSULIN LISPRO (NovoLOG) PER UNIT SC SCH ×4 (07:30→20:21)
[2023-05-20] MEDS ORDERED: HEPARIN 1,000UNITS/ML 10ML VIAL (FOR RADIOLOGY & DIALYSIS ONLY) As Ordered ONE (07:45)
[2023-05-20] MEDS ORDERED: LIDOCAINE 1% MDV 20ML VIAL As Ordered ONE ×2 (07:45→14:45)
[2023-05-20] MEDS ORDERED: MIDAZOLAM INJ 2MG/2ML VIAL As Ordered ONE (07:46)
[2023-05-20] MEDS ORDERED: fentaNYL 100 MCG/2 ML INJECTION As Ordered ONE (07:46)
[2023-05-20] MEDS ORDERED: LIDOCAINE W/EPINEPHRINE 1% 20ML VIAL As Ordered ONE (08:00)
[2023-05-20] MEDS: LACTOBACILLUS ACIDOPHILUS CAP (BACID) PO SCH ×4 (08:00→20:39)
[2023-05-20] MEDS: CALCIUM ACETATE 667MG GELCAP PO SCH ×2 (08:00→12:30)
[2023-05-20 08:53] LABS: C REACTIVE PROTEIN QUANTITATIV 12.7 MG/DL (<1.0)
[2023-05-20] MEDS: SODIUM BICARBONATE 325 MG TAB PO SCH ×2 (09:00→17:00)
[2023-05-20] MEDS: ASPIRIN 81MG ENTERIC TABLET PO SCH (09:00)
[2023-05-20] MEDS: ATORVASTATIN 20 MG TAB PO SCH (09:00)
[2023-05-20 09:01] LABS: PROCALCITONIN 1.56 ng/ml
[2023-05-20 10:09] LABS: ERYTHROCYTE SEDIMENTATION RATE > 130 mm/hr (0-30)
[2023-05-20] MEDS ORDERED: PERCOCET 5MG/325MG TAB PO ONE (10:15)
[2023-05-20] MEDS ORDERED: PERCOCET 5MG/325MG TAB PO PRN ×2 (10:25→11:45)
[2023-05-20] MEDS: ONDANSETRON 4MG 2ML VIAL IV PRN ×2 (12:59→20:03)
[2023-05-20] MEDS: HEPARIN SOD (PORCINE) 5000UNITS/ML 1ML VIAL/SYRINGE SQ SCH ×2 (12:59→20:19)
[2023-05-20] MEDS: METOPROLOL TARTRATE 100MG TAB PO SCH ×2 (14:30→20:20)
[2023-05-20] MEDS ORDERED: VANCOMYCIN HCL 750 MG, VIAL MATE ADAPTER 1 EACH in D5W 250 ML IV SCH (16:00)
[2023-05-20] MEDS ORDERED: VANCOMYCIN HCL 1,000 MG, VIAL MATE ADAPTER 1 EACH in D5W 250 ML IV SCH (16:00)
[2023-05-20] MEDS: LEVEMIR (INSULIN DETEMIR) 1 UNITS/0.01ML SC SCH (20:21)
[2023-05-20] MEDS: DOXYCYCLINE HYCLATE 100MG TABLET PO SCH (21:38)
[2023-05-21] VITALS (8 sets, daily range): BP systolic 134–164; BP diastolic 61–90; TEMP 96.7–98.7; O2SAT 88–95
[2023-05-21] MEDS: PIPERACILLIN/TAZOBACTAM SOD 2.25 GM in D5W MINI-BAG PLUS 50 ML IV SCH ×3 (03:40→20:27)
[2023-05-21] MEDS ORDERED: HEPARIN 1,000UNITS/ML 10ML VIAL (FOR RADIOLOGY & DIALYSIS ONLY) IV PRN (06:00)
[2023-05-21] MEDS ORDERED: SODIUM CHLORIDE 0.9% 1000ML IV PRN (06:00)
[2023-05-21] MEDS ORDERED: HEPARIN 1,000UNITS/ML 10ML VIAL (FOR RADIOLOGY & DIALYSIS ONLY) XX SCH (06:00)
[2023-05-21] MEDS: LACTOBACILLUS ACIDOPHILUS CAP (BACID) PO SCH ×4 (06:05→21:56)
[2023-05-21] MEDS: ASPIRIN 81MG ENTERIC TABLET PO SCH (06:05)
[2023-05-21 06:10] LABS: BASO # 0.1 10^3/uL (0.0-0.2); BASO % 0.3 % (0.0-1.0); EOS # 0.1 10^3/uL (0.0-0.5); EOS % 0.3 % (0.0-3.0); HEMATOCRIT 25.8 % (36.0-47.0); HEMOGLOBIN 8.4 g/dl (12.0-15.5); LYMPH % 3.8 % (24.0-44.0); MEAN CORPUSCULAR HEMOGLOBIN 27.1 pg (27.0-33.0); MEAN CORPUSCULAR HGB CONC 32.6 g/dl (32.0-36.5); MEAN CORPUSCULAR VOLUME 83.2 fl (80.0-96.0); MONO # 1.5 10^3/uL (0.0-0.8); MONO % 5.8 % (2.0-8.0); NEUTROPHILS # 21.5 10^3/uL (1.5-8.5); NEUTROPHILS % 86.5 % (36.0-66.0); PLATELET COUNT, AUTOMATED 439 10^3/uL (150-450); WHITE BLOOD COUNT 24.8 10^3/uL (4.0-10.0)
[2023-05-21 06:30] LABS: C REACTIVE PROTEIN QUANTITATIV 9.6 MG/DL (<1.0)
[2023-05-21 06:31] LABS: ERYTHROCYTE SEDIMENTATION RATE > 130 mm/hr (0-30)
[2023-05-21 06:32] LABS: CALCIUM LEVEL 7.2 MG/DL (8.3-10.6); CREATININE FOR GFR 6.24 MG/DL (0.55-1.30); GLOMERULAR FILTRATION RATE 7.2 (>45); POTASSIUM SERUM 4.9 MMOL/L (3.5-5.1)
[2023-05-21] MEDS: ATORVASTATIN 20 MG TAB PO SCH (08:15)
[2023-05-21] MEDS: DOXYCYCLINE HYCLATE 100MG TABLET PO SCH ×2 (08:15→21:56)
[2023-05-21] MEDS: METOPROLOL TARTRATE 100MG TAB PO SCH ×2 (08:15→21:57)
[2023-05-21] MEDS: HEPARIN SOD (PORCINE) 5000UNITS/ML 1ML VIAL/SYRINGE SQ SCH ×2 (08:16→21:58)
[2023-05-21] MEDS: INSULIN LISPRO (NovoLOG) PER UNIT SC SCH ×4 (08:16→21:00)
[2023-05-21 18:05] LABS: PLATELET COUNT, AUTOMATED 468 10^3/uL (150-450)
[2023-05-21 18:25] LABS: INR 1.06
[2023-05-21 18:26] LABS: PARTIAL THROMBOPLASTIN TIME 33.3 SECONDS (24.8-34.2)
[2023-05-21] MEDS ORDERED: GENTAMICIN SULF 80MG/2ML VIAL As Ordered ONE (18:26)
[2023-05-21] MEDS ORDERED: LIDOCAINE 2% MDV 20ML VIAL As Ordered ONE (18:26)
[2023-05-21 18:31] LABS: FIBRINOGEN 1159 MG/DL (268-480)
[2023-05-21 19:21] LABS: D-DIMER QUANT > 4000 ng/ml (<500)
[2023-05-21] MEDS: ACETAMINOPHEN TAB 650MG DOSE (2X325MG) PO PRN (20:27)
[2023-05-21] MEDS: LEVEMIR (INSULIN DETEMIR) 1 UNITS/0.01ML SC SCH (21:58)
[2023-05-21] MEDS: PERCOCET 5MG/325MG TAB PO PRN (22:05)
[2023-05-22] MEDS: PIPERACILLIN/TAZOBACTAM SOD 2.25 GM in D5W MINI-BAG PLUS 50 ML IV SCH ×3 (02:33→18:06)
[2023-05-22 03:47] VITALS: BP 140/74; TEMP 98.2; O2SAT 91
[2023-05-22] MEDS: LACTOBACILLUS ACIDOPHILUS CAP (BACID) PO SCH ×4 (05:25→20:48)
[2023-05-22] MEDS: DOXYCYCLINE HYCLATE 100MG TABLET PO SCH ×2 (05:25→20:49)
[2023-05-22] MEDS: METOPROLOL TARTRATE 100MG TAB PO SCH ×2 (05:26→20:49)
[2023-05-22] MEDS: ATORVASTATIN 20 MG TAB PO SCH (05:26)
[2023-05-22] MEDS: ASPIRIN 81MG ENTERIC TABLET PO SCH (05:26)
[2023-05-22] MEDS ORDERED: HEPARIN 1,000UNITS/ML 10ML VIAL (FOR RADIOLOGY & DIALYSIS ONLY) IV PRN (06:00)
[2023-05-22] MEDS ORDERED: HEPARIN 1,000UNITS/ML 10ML VIAL (FOR RADIOLOGY & DIALYSIS ONLY) XX SCH (06:00)
[2023-05-22] MEDS ORDERED: SODIUM CHLORIDE 0.9% 1000ML IV PRN (06:00)
[2023-05-22] MEDS: ONDANSETRON 4MG 2ML VIAL IV PRN (06:32)
[2023-05-22 06:51] LABS: BASO # 0.1 10^3/uL (0.0-0.2); BASO % 0.4 % (0.0-1.0); EOS # 0.4 10^3/uL (0.0-0.5); EOS % 1.8 % (0.0-3.0); HEMATOCRIT 26.3 % (36.0-47.0); HEMOGLOBIN 8.3 g/dl (12.0-15.5); LYMPH # 1.3 10^3/uL (1.5-5.0); LYMPH % 5.5 % (24.0-44.0); MEAN CORPUSCULAR HEMOGLOBIN 26.5 pg (27.0-33.0); MEAN CORPUSCULAR HGB CONC 31.6 g/dl (32.0-36.5); MONO % 8.2 % (2.0-8.0); NEUTROPHILS # 19.6 10^3/uL (1.5-8.5); NEUTROPHILS % 80.4 % (36.0-66.0); PLATELET COUNT, AUTOMATED 428 10^3/uL (150-450); RED BLOOD COUNT 3.13 10^6/uL (4.00-5.40); WHITE BLOOD COUNT 24.4 10^3/uL (4.0-10.0)
[2023-05-22 07:22] LABS: ERYTHROCYTE SEDIMENTATION RATE 83 mm/hr (0-30)
[2023-05-22] MEDS: INSULIN LISPRO (NovoLOG) PER UNIT SC SCH ×4 (07:30→20:40)
[2023-05-22 08:00] VITALS: BP 148/67; TEMP 97.9; O2SAT 92
[2023-05-22 08:03] LABS: C REACTIVE PROTEIN QUANTITATIV 7.6 MG/DL (<1.0)
[2023-05-22 08:13] LABS: CALCIUM LEVEL 7.7 MG/DL (8.3-10.6); CREATININE FOR GFR 4.53 MG/DL (0.55-1.30); GLOMERULAR FILTRATION RATE 10.4 (>45); POTASSIUM SERUM 3.9 MMOL/L (3.5-5.1)
[2023-05-22] MEDS: HEPARIN SOD (PORCINE) 5000UNITS/ML 1ML VIAL/SYRINGE SQ SCH ×2 (09:00→20:49)
[2023-05-22] MEDS: ACETAMINOPHEN TAB 650MG DOSE (2X325MG) PO PRN (13:43)
[2023-05-22 14:20] VITALS: BP 158/68; TEMP 97.8; O2SAT 98
[2023-05-22 15:08] LABS: BODY FLUID CULTURE Not indicated. (.); ORGANISM ID Not indicated. (.); SPECIMEN SOURCE Urine (.); URINE STREP PNEUMONIAE ANTIGEN Negative (Negative)
[2023-05-22 16:09] VITALS: BP 152/67; TEMP 97.7; O2SAT 94
[2023-05-22 19:27] VITALS: BP 137/61; TEMP 99.3; O2SAT 95
[2023-05-22] MEDS: LEVEMIR (INSULIN DETEMIR) 1 UNITS/0.01ML SC SCH (20:48)
[2023-05-22] MEDS: PERCOCET 5MG/325MG TAB PO PRN (23:07)
[2023-05-23 00:05] VITALS: BP 146/69; TEMP 98.5; O2SAT 93
[2023-05-23 03:02] VITALS: BP 139/66; TEMP 97.3; O2SAT 94
[2023-05-23] MEDS: PIPERACILLIN/TAZOBACTAM SOD 2.25 GM in D5W MINI-BAG PLUS 50 ML IV SCH ×3 (05:47→18:25)
[2023-05-23 08:00] LABS: BASO # 0.1 10^3/uL (0.0-0.2); BASO % 0.3 % (0.0-1.0); EOS # 0.6 10^3/uL (0.0-0.5); EOS % 2.1 % (0.0-3.0); HEMATOCRIT 26.6 % (36.0-47.0); HEMOGLOBIN 8.5 g/dl (12.0-15.5); LYMPH # 1.6 10^3/uL (1.5-5.0); LYMPH % 5.8 % (24.0-44.0); MEAN CORPUSCULAR VOLUME 84.4 fl (80.0-96.0); MONO % 6.4 % (2.0-8.0); NEUTROPHILS % 82.9 % (36.0-66.0); PLATELET COUNT, AUTOMATED 388 10^3/uL (150-450); RED BLOOD COUNT 3.15 10^6/uL (4.00-5.40); WHITE BLOOD COUNT 27.7 10^3/uL (4.0-10.0)
[2023-05-23 08:18] LABS: C REACTIVE PROTEIN QUANTITATIV 8.6 MG/DL (<1.0)
[2023-05-23 08:20] LABS: CALCIUM LEVEL 7.8 MG/DL (8.3-10.6); CREATININE FOR GFR 3.37 MG/DL (0.55-1.30); GLOMERULAR FILTRATION RATE 14.6 (>45); POTASSIUM SERUM 3.4 MMOL/L (3.5-5.1)
[2023-05-23 08:37] VITALS: BP 140/61; TEMP 97.3; O2SAT 93
[2023-05-23 08:51] LABS: ERYTHROCYTE SEDIMENTATION RATE 87 mm/hr (0-30)
[2023-05-23] MEDS: ATORVASTATIN 20 MG TAB PO SCH (08:51)
[2023-05-23] MEDS: METOPROLOL TARTRATE 100MG TAB PO SCH ×2 (08:51→20:59)
[2023-05-23] MEDS: LACTOBACILLUS ACIDOPHILUS CAP (BACID) PO SCH ×4 (08:51→20:59)
[2023-05-23] MEDS: DOXYCYCLINE HYCLATE 100MG TABLET PO SCH ×2 (08:51→20:59)
[2023-05-23] MEDS: ASPIRIN 81MG ENTERIC TABLET PO SCH (08:51)
[2023-05-23] MEDS: INSULIN LISPRO (NovoLOG) PER UNIT SC SCH ×4 (08:52→20:57)
[2023-05-23] MEDS: HEPARIN SOD (PORCINE) 5000UNITS/ML 1ML VIAL/SYRINGE SQ SCH ×2 (08:52→20:57)
[2023-05-23 09:28] LABS: MONO # 1.8 10^3/uL (0.0-0.8)
[2023-05-23] MEDS ORDERED: POTASSIUM CHLORIDE 10MEQ SR TABLET PO ONE (10:50)
[2023-05-23 11:47] VITALS: BP 130/57; TEMP 97.7; O2SAT 93
[2023-05-23 11:50] LABS: PROCALCITONIN 0.72 ng/ml
[2023-05-23 16:09] VITALS: BP 128/86; TEMP 98.3; O2SAT 95
[2023-05-23 20:00] VITALS: BP 149/63; TEMP 97.7; O2SAT 95
[2023-05-23] MEDS: LEVEMIR (INSULIN DETEMIR) 1 UNITS/0.01ML SC SCH (20:56)
[2023-05-23] MEDS: PERCOCET 5MG/325MG TAB PO PRN (21:02)
[2023-05-24] VITALS: BP 150/68; TEMP 96.9; O2SAT 92
[2023-05-24] MEDS: PIPERACILLIN/TAZOBACTAM SOD 2.25 GM in D5W MINI-BAG PLUS 50 ML IV SCH ×3 (02:07→19:10)
[2023-05-24 04:00] VITALS: BP 156/67; TEMP 97.1; O2SAT 91
[2023-05-24 05:41] LABS: BASO # 0.1 10^3/uL (0.0-0.2); BASO % 0.5 % (0.0-1.0); EOS # 0.5 10^3/uL (0.0-0.5); EOS % 2.4 % (0.0-3.0); HEMATOCRIT 26.2 % (36.0-47.0); LYMPH # 1.5 10^3/uL (1.5-5.0); LYMPH % 7.2 % (24.0-44.0); MEAN CORPUSCULAR HEMOGLOBIN 26.1 pg (27.0-33.0); MEAN CORPUSCULAR HGB CONC 30.5 g/dl (32.0-36.5); MEAN CORPUSCULAR VOLUME 85.6 fl (80.0-96.0); MONO # 1.5 10^3/uL (0.0-0.8); MONO % 7.2 % (2.0-8.0); NEUTROPHILS # 16.8 10^3/uL (1.5-8.5); NEUTROPHILS % 80.3 % (36.0-66.0); PLATELET COUNT, AUTOMATED 375 10^3/uL (150-450); RED BLOOD COUNT 3.06 10^6/uL (4.00-5.40)
[2023-05-24 05:59] LABS: CALCIUM LEVEL 7.9 MG/DL (8.3-10.6); CREATININE FOR GFR 3.96 MG/DL (0.55-1.30); GLOMERULAR FILTRATION RATE 12.1 (>45); POTASSIUM SERUM 3.9 MMOL/L (3.5-5.1)
[2023-05-24 06:58] LABS: ERYTHROCYTE SEDIMENTATION RATE 79 mm/hr (0-30)
[2023-05-24] MEDS ORDERED: SODIUM CHLORIDE 0.9% 1000ML IV PRN (07:45)
[2023-05-24] MEDS ORDERED: HEPARIN 1,000UNITS/ML 10ML VIAL (FOR RADIOLOGY & DIALYSIS ONLY) XX SCH (07:45)
[2023-05-24] MEDS: LACTOBACILLUS ACIDOPHILUS CAP (BACID) PO SCH ×4 (07:45→20:46)
[2023-05-24] MEDS ORDERED: HEPARIN 1,000UNITS/ML 10ML VIAL (FOR RADIOLOGY & DIALYSIS ONLY) IV PRN (07:45)
[2023-05-24] MEDS: INSULIN LISPRO (NovoLOG) PER UNIT SC SCH ×4 (07:45→20:47)
[2023-05-24 07:50] VITALS: BP 146/70; TEMP 98.3; O2SAT 94
[2023-05-24] MEDS ORDERED: IRON SUCROSE 100MG 5ML VIAL IV SCH (08:00)
[2023-05-24] MEDS ORDERED: DARBEPOETIN 100MCG/0.5ML *DIALYSIS* SYRINGE IV SCH (08:00)
[2023-05-24 13:00] VITALS: BP 145/86; TEMP 98; O2SAT 97
[2023-05-24] MEDS: SODIUM CHLORIDE 0.9% NASAL GEL 15GM (AYR) SCH ×4 (13:00→20:47)
[2023-05-24] MEDS: HEPARIN SOD (PORCINE) 5000UNITS/ML 1ML VIAL/SYRINGE SQ SCH ×2 (13:11→20:46)
[2023-05-24] MEDS: ATORVASTATIN 20 MG TAB PO SCH (13:12)
[2023-05-24] MEDS: ASPIRIN 81MG ENTERIC TABLET PO SCH (13:12)
[2023-05-24] MEDS: METOPROLOL TARTRATE 100MG TAB PO SCH ×2 (13:12→20:47)
[2023-05-24] MEDS: DOXYCYCLINE HYCLATE 100MG TABLET PO SCH ×2 (13:13→20:46)
[2023-05-24 16:16] LABS: PROCALCITONIN 0.43 ng/ml
[2023-05-24 20:00] VITALS: BP 151/70; TEMP 98.9; O2SAT 94
[2023-05-24] MEDS: LEVEMIR (INSULIN DETEMIR) 1 UNITS/0.01ML SC SCH (20:46)
[2023-05-24] MEDS: PERCOCET 5MG/325MG TAB PO PRN (21:23)
[2023-05-25] VITALS (7 sets, daily range): BP systolic 135–158; BP diastolic 66–74; TEMP 97–99.1; O2SAT 91–95
[2023-05-25] MEDS: PIPERACILLIN/TAZOBACTAM SOD 2.25 GM in D5W MINI-BAG PLUS 50 ML IV SCH ×3 (02:29→18:09)
[2023-05-25 05:03] LABS: BASO # 0.1 10^3/uL (0.0-0.2); BASO % 0.5 % (0.0-1.0); EOS # 0.4 10^3/uL (0.0-0.5); HEMATOCRIT 24.5 % (36.0-47.0); HEMOGLOBIN 7.5 g/dl (12.0-15.5); LYMPH # 1.8 10^3/uL (1.5-5.0); LYMPH % 8.7 % (24.0-44.0); MEAN CORPUSCULAR HEMOGLOBIN 26.8 pg (27.0-33.0); MEAN CORPUSCULAR HGB CONC 30.6 g/dl (32.0-36.5); MEAN CORPUSCULAR VOLUME 87.5 fl (80.0-96.0); MONO % 7.5 % (2.0-8.0); NEUTROPHILS # 16.6 10^3/uL (1.5-8.5); NEUTROPHILS % 78.4 % (36.0-66.0); PLATELET COUNT, AUTOMATED 372 10^3/uL (150-450); WHITE BLOOD COUNT 21.1 10^3/uL (4.0-10.0)
[2023-05-25 05:23] LABS: ERYTHROCYTE SEDIMENTATION RATE 89 mm/hr (0-30)
[2023-05-25 05:32] LABS: MONO # 1.6 10^3/uL (0.0-0.8)
[2023-05-25 05:33] LABS: C REACTIVE PROTEIN QUANTITATIV 4.1 MG/DL (<1.0); CALCIUM LEVEL 8.4 MG/DL (8.3-10.6); CREATININE FOR GFR 2.35 MG/DL (0.55-1.30); GLOMERULAR FILTRATION RATE 22.2 (>45); POTASSIUM SERUM 4.4 MMOL/L (3.5-5.1)
[2023-05-25 05:40] LABS: PROCALCITONIN 0.32 ng/ml
[2023-05-25] MEDS: HEPARIN SOD (PORCINE) 5000UNITS/ML 1ML VIAL/SYRINGE SQ SCH ×2 (08:27→20:55)
[2023-05-25] MEDS: SODIUM CHLORIDE NASAL 0.65% SPRAY BTL (OCEAN) PRN ×2 (08:27→20:58)
[2023-05-25] MEDS: INSULIN LISPRO (NovoLOG) PER UNIT SC SCH ×4 (08:27→20:56)
[2023-05-25] MEDS: DOXYCYCLINE HYCLATE 100MG TABLET PO SCH ×2 (08:28→20:55)
[2023-05-25] MEDS: ATORVASTATIN 20 MG TAB PO SCH (08:28)
[2023-05-25] MEDS: ASPIRIN 81MG ENTERIC TABLET PO SCH (08:28)
[2023-05-25] MEDS: METOPROLOL TARTRATE 100MG TAB PO SCH ×2 (08:28→20:54)
[2023-05-25] MEDS: LACTOBACILLUS ACIDOPHILUS CAP (BACID) PO SCH ×4 (08:28→20:54)
[2023-05-25] MEDS: SODIUM CHLORIDE 0.9% NASAL GEL 15GM (AYR) SCH ×4 (08:29→21:08)
[2023-05-25 11:58] LABS: HEMATOCRIT 25.8 % (36.0-47.0); HEMOGLOBIN 7.9 g/dl (12.0-15.5)
[2023-05-25] MEDS: LEVEMIR (INSULIN DETEMIR) 1 UNITS/0.01ML SC SCH (20:56)
[2023-05-25 21:23] LABS: HEMOGLOBIN 8.5 g/dl (12.0-15.5)
[2023-05-26] MEDS: ONDANSETRON 4MG 2ML VIAL IV PRN (01:55)
[2023-05-26] MEDS: PIPERACILLIN/TAZOBACTAM SOD 2.25 GM in D5W MINI-BAG PLUS 50 ML IV SCH ×3 (01:57→17:57)
[2023-05-26 06:00] VITALS: BP 166/70; TEMP 99; O2SAT 93
[2023-05-26 06:11] LABS: BASO # 0.1 10^3/uL (0.0-0.2); BASO % 0.6 % (0.0-1.0); EOS # 0.5 10^3/uL (0.0-0.5); EOS % 2.5 % (0.0-3.0); HEMATOCRIT 28.1 % (36.0-47.0); HEMOGLOBIN 8.8 g/dl (12.0-15.5); LYMPH # 1.9 10^3/uL (1.5-5.0); LYMPH % 8.9 % (24.0-44.0); MEAN CORPUSCULAR HEMOGLOBIN 26.9 pg (27.0-33.0); MEAN CORPUSCULAR HGB CONC 31.3 g/dl (32.0-36.5); MEAN CORPUSCULAR VOLUME 85.9 fl (80.0-96.0); MONO # 1.4 10^3/uL (0.0-0.8); MONO % 6.8 % (2.0-8.0); PLATELET COUNT, AUTOMATED 429 10^3/uL (150-450); RED BLOOD COUNT 3.27 10^6/uL (4.00-5.40); WHITE BLOOD COUNT 20.8 10^3/uL (4.0-10.0)
[2023-05-26 06:34] LABS: PROCALCITONIN 0.18 ng/ml
[2023-05-26 06:47] LABS: CALCIUM LEVEL 8.7 MG/DL (8.3-10.6); CREATININE FOR GFR 2.47 MG/DL (0.55-1.30); GLOMERULAR FILTRATION RATE 20.9 (>45); POTASSIUM SERUM 4.6 MMOL/L (3.5-5.1)
[2023-05-26] MEDS: ONDANSETRON 4MG 2ML VIAL IV SCH ×3 (08:19→20:37)
[2023-05-26] MEDS: SODIUM CHLORIDE 0.9% NASAL GEL 15GM (AYR) SCH ×4 (09:00→20:40)
[2023-05-26] MEDS: ASPIRIN 81MG ENTERIC TABLET PO SCH (09:20)
[2023-05-26] MEDS: ATORVASTATIN 20 MG TAB PO SCH (09:20)
[2023-05-26] MEDS: HEPARIN SOD (PORCINE) 5000UNITS/ML 1ML VIAL/SYRINGE SQ SCH ×2 (09:20→20:37)
[2023-05-26] MEDS: INSULIN LISPRO (NovoLOG) PER UNIT SC SCH ×4 (09:20→20:38)
[2023-05-26] MEDS: LACTOBACILLUS ACIDOPHILUS CAP (BACID) PO SCH ×4 (09:20→20:36)
[2023-05-26] MEDS: DOXYCYCLINE HYCLATE 100MG TABLET PO SCH (09:21)
[2023-05-26] MEDS: METOPROLOL TARTRATE 100MG TAB PO SCH ×2 (09:21→20:38)
[2023-05-26] MEDS: SIMETHICONE 80MG CHEW TAB PO PRN ×2 (11:32→17:56)
[2023-05-26 14:00] VITALS: BP 139/67; TEMP 97.9; O2SAT 94
[2023-05-26] MEDS ORDERED: LIDOCAINE 2% 5ML JELLY UROJET TOP ONE (18:55)
[2023-05-26 20:25] LABS: HEMOGLOBIN 8.8 g/dl (12.0-15.5)
[2023-05-26] MEDS: LEVEMIR (INSULIN DETEMIR) 1 UNITS/0.01ML SC SCH (20:38)
[2023-05-26] MEDS: SODIUM CHLORIDE NASAL 0.65% SPRAY BTL (OCEAN) PRN (20:39)
[2023-05-26 21:00] VITALS: BP 138/66; TEMP 98.1; O2SAT 92
[2023-05-27] MEDS ORDERED: ONDANSETRON 4MG 2ML VIAL IV PRN
[2023-05-27] MEDS: PIPERACILLIN/TAZOBACTAM SOD 2.25 GM in D5W MINI-BAG PLUS 50 ML IV SCH ×3 (03:17→18:35)
[2023-05-27 05:36] LABS: BASO # 0.1 10^3/uL (0.0-0.2); BASO % 0.6 % (0.0-1.0); EOS # 0.4 10^3/uL (0.0-0.5); EOS % 2.4 % (0.0-3.0); HEMATOCRIT 28.9 % (36.0-47.0); HEMOGLOBIN 9.1 g/dl (12.0-15.5); LYMPH # 2.2 10^3/uL (1.5-5.0); LYMPH % 12.2 % (24.0-44.0); MEAN CORPUSCULAR HEMOGLOBIN 27.2 pg (27.0-33.0); MEAN CORPUSCULAR HGB CONC 31.5 g/dl (32.0-36.5); MEAN CORPUSCULAR VOLUME 86.5 fl (80.0-96.0); MONO # 1.5 10^3/uL (0.0-0.8); MONO % 8.1 % (2.0-8.0); NEUTROPHILS # 13.2 10^3/uL (1.5-8.5); NEUTROPHILS % 73.6 % (36.0-66.0); PLATELET COUNT, AUTOMATED 440 10^3/uL (150-450); RED BLOOD COUNT 3.34 10^6/uL (4.00-5.40)
[2023-05-27 05:50] VITALS: BP 149/69; TEMP 98.1; O2SAT 92
[2023-05-27 06:01] LABS: CALCIUM LEVEL 8.9 MG/DL (8.3-10.6); CREATININE FOR GFR 2.53 MG/DL (0.55-1.30); GLOMERULAR FILTRATION RATE 20.4 (>45); POTASSIUM SERUM 4.5 MMOL/L (3.5-5.1)
[2023-05-27 06:11] LABS: PROCALCITONIN 0.15 ng/ml
[2023-05-27] MEDS: ATORVASTATIN 20 MG TAB PO SCH (08:20)
[2023-05-27] MEDS: HEPARIN SOD (PORCINE) 5000UNITS/ML 1ML VIAL/SYRINGE SQ SCH ×2 (08:20→21:56)
[2023-05-27] MEDS: ASPIRIN 81MG ENTERIC TABLET PO SCH (08:21)
[2023-05-27] MEDS: LACTOBACILLUS ACIDOPHILUS CAP (BACID) PO SCH ×4 (08:21→21:54)
[2023-05-27] MEDS: METOPROLOL TARTRATE 100MG TAB PO SCH ×2 (08:21→21:54)
[2023-05-27] MEDS: INSULIN LISPRO (NovoLOG) PER UNIT SC SCH ×4 (08:21→21:00)
[2023-05-27] MEDS: SODIUM CHLORIDE 0.9% NASAL GEL 15GM (AYR) SCH ×4 (08:22→21:55)
[2023-05-27 14:00] VITALS: BP 145/66; TEMP 98.4; O2SAT 93
[2023-05-27 21:05] VITALS: BP 142/66; TEMP 98.8; O2SAT 94
[2023-05-27] MEDS: SODIUM CHLORIDE NASAL 0.65% SPRAY BTL (OCEAN) PRN (21:55)
[2023-05-27] MEDS: LEVEMIR (INSULIN DETEMIR) 1 UNITS/0.01ML SC SCH (21:56)
[2023-05-28] MEDS: PIPERACILLIN/TAZOBACTAM SOD 2.25 GM in D5W MINI-BAG PLUS 50 ML IV SCH ×3 (02:43→18:02)
[2023-05-28 05:40] VITALS: BP 143/67; TEMP 98.1; O2SAT 93
[2023-05-28 06:10] LABS: BASO # 0.1 10^3/uL (0.0-0.2); BASO % 0.7 % (0.0-1.0); EOS # 0.5 10^3/uL (0.0-0.5); EOS % 3.2 % (0.0-3.0); HEMATOCRIT 27.8 % (36.0-47.0); HEMOGLOBIN 8.7 g/dl (12.0-15.5); LYMPH % 13.1 % (24.0-44.0); MEAN CORPUSCULAR HEMOGLOBIN 27.2 pg (27.0-33.0); MEAN CORPUSCULAR HGB CONC 31.3 g/dl (32.0-36.5); MEAN CORPUSCULAR VOLUME 86.9 fl (80.0-96.0); MONO # 1.3 10^3/uL (0.0-0.8); MONO % 8.9 % (2.0-8.0); NEUTROPHILS # 10.7 10^3/uL (1.5-8.5); PLATELET COUNT, AUTOMATED 466 10^3/uL (150-450); WHITE BLOOD COUNT 14.9 10^3/uL (4.0-10.0)
[2023-05-28 06:33] LABS: C REACTIVE PROTEIN QUANTITATIV 1.1 MG/DL (<1.0)
[2023-05-28 06:40] LABS: PROCALCITONIN 0.12 ng/ml
[2023-05-28 07:02] LABS: CALCIUM LEVEL 8.1 MG/DL (8.3-10.6); CREATININE FOR GFR 2.34 MG/DL (0.55-1.30); GLOMERULAR FILTRATION RATE 22.3 (>45); POTASSIUM SERUM 4.5 MMOL/L (3.5-5.1)
[2023-05-28] MEDS: HEPARIN SOD (PORCINE) 5000UNITS/ML 1ML VIAL/SYRINGE SQ SCH ×2 (08:52→21:31)
[2023-05-28] MEDS: DARBEPOETIN 200MCG/0.4ML *NON-DIALYSIS* SYRINGE SC SCH (08:52)
[2023-05-28] MEDS: INSULIN LISPRO (NovoLOG) PER UNIT SC SCH ×4 (08:53→21:00)
[2023-05-28] MEDS: ASPIRIN 81MG ENTERIC TABLET PO SCH (08:53)
[2023-05-28] MEDS: LACTOBACILLUS ACIDOPHILUS CAP (BACID) PO SCH ×4 (08:53→21:30)
[2023-05-28] MEDS: ATORVASTATIN 20 MG TAB PO SCH (08:54)
[2023-05-28] MEDS: SODIUM CHLORIDE 0.9% NASAL GEL 15GM (AYR) SCH ×4 (08:54→21:00)
[2023-05-28] MEDS: METOPROLOL TARTRATE 100MG TAB PO SCH ×2 (08:54→21:30)
[2023-05-28 11:53] VITALS: O2SAT 94
[2023-05-28 14:00] VITALS: BP 140/66; TEMP 97.9; O2SAT 96
[2023-05-28 21:00] VITALS: BP 142/66; TEMP 97; O2SAT 92
[2023-05-28] MEDS: LEVEMIR (INSULIN DETEMIR) 1 UNITS/0.01ML SC SCH (21:30)
[2023-05-28] MEDS ORDERED: LIDOCAINE 2% 5ML JELLY UROJET TOP ONE (23:00)
[2023-05-28] MEDS ORDERED: NYSTATIN 100,000 UNITS/GM TOPICAL PWD 15GM TOP PRN (23:15)
[2023-05-29] VITALS (7 sets, daily range): BP systolic 140–144; BP diastolic 65–67; TEMP 97.5–98.2; O2SAT 86–98
[2023-05-29] MEDS: SODIUM CHLORIDE 0.9% INJ 10 ML SYR IV PRN ×2 (02:26→05:53)
[2023-05-29] MEDS: PIPERACILLIN/TAZOBACTAM SOD 2.25 GM in D5W MINI-BAG PLUS 50 ML IV SCH ×2 (02:26→11:55)
[2023-05-29 06:03] LABS: BASO # 0.1 10^3/uL (0.0-0.2); BASO % 0.8 % (0.0-1.0); EOS # 0.5 10^3/uL (0.0-0.5); EOS % 3.2 % (0.0-3.0); HEMATOCRIT 30.8 % (36.0-47.0); HEMOGLOBIN 9.6 g/dl (12.0-15.5); LYMPH # 2.3 10^3/uL (1.5-5.0); LYMPH % 15.7 % (24.0-44.0); MEAN CORPUSCULAR HEMOGLOBIN 27.1 pg (27.0-33.0); MEAN CORPUSCULAR HGB CONC 31.2 g/dl (32.0-36.5); MONO # 1.3 10^3/uL (0.0-0.8); MONO % 8.8 % (2.0-8.0); NEUTROPHILS # 10.2 10^3/uL (1.5-8.5); NEUTROPHILS % 69.7 % (36.0-66.0); PLATELET COUNT, AUTOMATED 459 10^3/uL (150-450); RED BLOOD COUNT 3.54 10^6/uL (4.00-5.40); WHITE BLOOD COUNT 14.6 10^3/uL (4.0-10.0)
[2023-05-29 06:13] LABS: CALCIUM LEVEL 8.1 MG/DL (8.3-10.6); CREATININE FOR GFR 2.26 MG/DL (0.55-1.30); GLOMERULAR FILTRATION RATE 23.2 (>45); POTASSIUM SERUM 4.4 MMOL/L (3.5-5.1)
[2023-05-29] MEDS: HEPARIN SOD (PORCINE) 5000UNITS/ML 1ML VIAL/SYRINGE SQ SCH (08:46)
[2023-05-29] MEDS: METOPROLOL TARTRATE 100MG TAB PO SCH ×2 (08:47→21:54)
[2023-05-29] MEDS: INSULIN LISPRO (NovoLOG) PER UNIT SC SCH ×4 (08:47→21:00)
[2023-05-29] MEDS: ASPIRIN 81MG ENTERIC TABLET PO SCH (08:47)
[2023-05-29] MEDS: ATORVASTATIN 20 MG TAB PO SCH (08:48)
[2023-05-29] MEDS: LACTOBACILLUS ACIDOPHILUS CAP (BACID) PO SCH ×4 (08:48→21:54)
[2023-05-29] MEDS: SODIUM CHLORIDE 0.9% INJ 10 ML SYR IV SCH (08:49)
[2023-05-29] MEDS: SODIUM CHLORIDE 0.9% NASAL GEL 15GM (AYR) SCH ×4 (08:50→21:54)
[2023-05-29] MEDS: LEVEMIR (INSULIN DETEMIR) 1 UNITS/0.01ML SC SCH (21:54)
[2023-05-29] MEDS: AUGMENTIN 500MG TAB PO SCH (21:54)
[2023-05-30 05:50] VITALS: BP 148/68; TEMP 98.8; O2SAT 64
[2023-05-30 06:02] LABS: BASO # 0.1 10^3/uL (0.0-0.2); BASO % 0.9 % (0.0-1.0); EOS # 0.4 10^3/uL (0.0-0.5); EOS % 3.1 % (0.0-3.0); HEMOGLOBIN 8.9 g/dl (12.0-15.5); LYMPH # 1.9 10^3/uL (1.5-5.0); LYMPH % 13.2 % (24.0-44.0); MEAN CORPUSCULAR HGB CONC 30.7 g/dl (32.0-36.5); MEAN CORPUSCULAR VOLUME 87.9 fl (80.0-96.0); MONO # 1.4 10^3/uL (0.0-0.8); NEUTROPHILS # 10.1 10^3/uL (1.5-8.5); NEUTROPHILS % 71.4 % (36.0-66.0); PLATELET COUNT, AUTOMATED 429 10^3/uL (150-450); WHITE BLOOD COUNT 14.1 10^3/uL (4.0-10.0)
[2023-05-30 06:38] LABS: CALCIUM LEVEL 8.2 MG/DL (8.3-10.6); CREATININE FOR GFR 2.07 MG/DL (0.55-1.30); GLOMERULAR FILTRATION RATE 25.7 (>45); POTASSIUM SERUM 4.6 MMOL/L (3.5-5.1)
[2023-05-30] MEDS: INSULIN LISPRO (NovoLOG) PER UNIT SC SCH ×4 (08:41→20:14)
[2023-05-30] MEDS: ASPIRIN 81MG ENTERIC TABLET PO SCH (08:42)
[2023-05-30] MEDS: LACTOBACILLUS ACIDOPHILUS CAP (BACID) PO SCH ×4 (08:42→20:15)
[2023-05-30] MEDS: AUGMENTIN 500MG TAB PO SCH ×2 (08:42→20:15)
[2023-05-30] MEDS: ATORVASTATIN 20 MG TAB PO SCH (08:42)
[2023-05-30] MEDS: METOPROLOL TARTRATE 100MG TAB PO SCH ×2 (08:43→20:15)
[2023-05-30] MEDS: SODIUM CHLORIDE 0.9% INJ 10 ML SYR IV SCH (08:43)
[2023-05-30] MEDS: SODIUM CHLORIDE 0.9% NASAL GEL 15GM (AYR) SCH ×4 (08:44→20:37)
[2023-05-30 14:00] VITALS: BP 148/69; TEMP 98.8; O2SAT 94
[2023-05-30 16:49] LABS: C REACTIVE PROTEIN QUANTITATIV 1.4 MG/DL (<1.0)
[2023-05-30 16:56] LABS: PROCALCITONIN 0.09 ng/ml
[2023-05-30 20:20] VITALS: BP 152/70; TEMP 99; O2SAT 92
[2023-05-30] MEDS: LEVEMIR (INSULIN DETEMIR) 1 UNITS/0.01ML SC SCH (20:33)
[2023-05-30] MEDS: HEPARIN SOD (PORCINE) 5000UNITS/ML 1ML VIAL/SYRINGE SQ SCH (21:12)
[2023-05-30] MEDS: SODIUM CHLORIDE 0.9% INJ 10 ML SYR IV PRN (22:02)
[2023-05-31] VITALS (10 sets, daily range): BP systolic 140–148; BP diastolic 66–67; TEMP 97.5–98.6; O2SAT 85–95
[2023-05-31 07:07] LABS: BASO # 0.1 10^3/uL (0.0-0.2); EOS # 0.4 10^3/uL (0.0-0.5); EOS % 3.4 % (0.0-3.0); HEMATOCRIT 29.7 % (36.0-47.0); HEMOGLOBIN 9.3 g/dl (12.0-15.5); LYMPH % 15.3 % (24.0-44.0); MEAN CORPUSCULAR HEMOGLOBIN 27.4 pg (27.0-33.0); MEAN CORPUSCULAR HGB CONC 31.3 g/dl (32.0-36.5); MEAN CORPUSCULAR VOLUME 87.4 fl (80.0-96.0); MONO # 1.2 10^3/uL (0.0-0.8); MONO % 9.3 % (2.0-8.0); NEUTROPHILS % 69.8 % (36.0-66.0); PLATELET COUNT, AUTOMATED 406 10^3/uL (150-450); WHITE BLOOD COUNT 12.9 10^3/uL (4.0-10.0)
[2023-05-31 07:31] LABS: CALCIUM LEVEL 8.2 MG/DL (8.3-10.6); CREATININE FOR GFR 1.91 MG/DL (0.55-1.30); GLOMERULAR FILTRATION RATE 28.2 (>45); POTASSIUM SERUM 4.5 MMOL/L (3.5-5.1)
[2023-05-31] MEDS: HEPARIN SOD (PORCINE) 5000UNITS/ML 1ML VIAL/SYRINGE SQ SCH ×2 (08:29→21:29)
[2023-05-31] MEDS: INSULIN LISPRO (NovoLOG) PER UNIT SC SCH ×4 (08:30→20:04)
[2023-05-31] MEDS: SODIUM CHLORIDE 0.9% INJ 10 ML SYR IV SCH (08:30)
[2023-05-31] MEDS: ASPIRIN 81MG ENTERIC TABLET PO SCH (08:31)
[2023-05-31] MEDS: LACTOBACILLUS ACIDOPHILUS CAP (BACID) PO SCH ×4 (08:31→21:29)
[2023-05-31] MEDS: AUGMENTIN 500MG TAB PO SCH ×2 (08:31→21:29)
[2023-05-31] MEDS: ATORVASTATIN 20 MG TAB PO SCH (08:32)
[2023-05-31] MEDS: SODIUM CHLORIDE 0.9% NASAL GEL 15GM (AYR) SCH ×4 (08:32→21:32)
[2023-05-31] MEDS: METOPROLOL TARTRATE 100MG TAB PO SCH ×2 (08:33→21:31)
[2023-05-31] MEDS: LEVEMIR (INSULIN DETEMIR) 1 UNITS/0.01ML SC SCH (21:32)
[2023-06-01 06:18] VITALS: BP 148/71; TEMP 99; O2SAT 93
[2023-06-01] MEDS: LACTOBACILLUS ACIDOPHILUS CAP (BACID) PO SCH ×4 (08:32→22:15)
[2023-06-01] MEDS: AUGMENTIN 500MG TAB PO SCH ×2 (08:32→22:15)
[2023-06-01] MEDS: INSULIN LISPRO (NovoLOG) PER UNIT SC SCH ×4 (08:32→21:00)
[2023-06-01] MEDS: HEPARIN SOD (PORCINE) 5000UNITS/ML 1ML VIAL/SYRINGE SQ SCH ×2 (08:32→22:15)
[2023-06-01] MEDS: ASPIRIN 81MG ENTERIC TABLET PO SCH (08:32)
[2023-06-01] MEDS: SODIUM CHLORIDE 0.9% NASAL GEL 15GM (AYR) SCH ×4 (08:33→21:00)
[2023-06-01] MEDS: METOPROLOL TARTRATE 100MG TAB PO SCH ×2 (08:33→22:15)
[2023-06-01] MEDS: ATORVASTATIN 20 MG TAB PO SCH (08:33)
[2023-06-01] MEDS: SODIUM CHLORIDE 0.9% INJ 10 ML SYR IV SCH (08:34)
[2023-06-01] MEDS: LEVEMIR (INSULIN DETEMIR) 1 UNITS/0.01ML SC SCH (22:16)
[2023-06-02 05:08] VITALS: BP 155/75; TEMP 99.5; O2SAT 90
[2023-06-02] MEDS: LACTOBACILLUS ACIDOPHILUS CAP (BACID) PO SCH ×4 (08:26→21:13)
[2023-06-02] MEDS: AUGMENTIN 500MG TAB PO SCH ×2 (08:26→21:14)
[2023-06-02] MEDS: ASPIRIN 81MG ENTERIC TABLET PO SCH (08:26)
[2023-06-02] MEDS: ATORVASTATIN 20 MG TAB PO SCH (08:26)
[2023-06-02] MEDS: INSULIN LISPRO (NovoLOG) PER UNIT SC SCH ×4 (08:26→21:00)
[2023-06-02] MEDS: SODIUM CHLORIDE 0.9% INJ 10 ML SYR IV SCH (08:27)
[2023-06-02] MEDS: HEPARIN SOD (PORCINE) 5000UNITS/ML 1ML VIAL/SYRINGE SQ SCH ×2 (08:27→21:16)
[2023-06-02] MEDS: SODIUM CHLORIDE 0.9% NASAL GEL 15GM (AYR) SCH ×5 (08:30→21:16)
[2023-06-02] MEDS: METOPROLOL TARTRATE 100MG TAB PO SCH ×2 (08:30→21:14)
[2023-06-02] MEDS ORDERED: LIDOCAINE 1% MDV 20ML VIAL As Ordered ONE (14:15)
[2023-06-02 14:57] VITALS: BP 134/63; TEMP 99.1; O2SAT 94
[2023-06-02] MEDS: PERCOCET 5MG/325MG TAB PO PRN (21:15)
[2023-06-02] MEDS: LEVEMIR (INSULIN DETEMIR) 1 UNITS/0.01ML SC SCH (21:16)
[2023-06-03 05:10] VITALS: BP 143/70; TEMP 98.1; O2SAT 94
[2023-06-03] MEDS: HEPARIN SOD (PORCINE) 5000UNITS/ML 1ML VIAL/SYRINGE SQ SCH ×2 (08:43→21:18)
[2023-06-03] MEDS: INSULIN LISPRO (NovoLOG) PER UNIT SC SCH ×4 (08:43→21:00)
[2023-06-03] MEDS: LACTOBACILLUS ACIDOPHILUS CAP (BACID) PO SCH ×4 (08:44→21:17)
[2023-06-03] MEDS: AUGMENTIN 500MG TAB PO SCH ×2 (08:44→21:17)
[2023-06-03] MEDS: SODIUM CHLORIDE 0.9% INJ 10 ML SYR IV SCH (08:44)
[2023-06-03] MEDS: ATORVASTATIN 20 MG TAB PO SCH (08:44)
[2023-06-03] MEDS: METOPROLOL TARTRATE 100MG TAB PO SCH ×2 (08:45→21:17)
[2023-06-03] MEDS: SODIUM CHLORIDE 0.9% NASAL GEL 15GM (AYR) SCH ×4 (08:45→21:18)
[2023-06-03] MEDS: ASPIRIN 81MG ENTERIC TABLET PO SCH (08:45)
[2023-06-03] MEDS: LEVEMIR (INSULIN DETEMIR) 1 UNITS/0.01ML SC SCH (21:18)
[2023-06-04 05:20] VITALS: BP_SYST 113; BP_SYST 141; BP_DIAS 58; BP_DIAS 68; TEMP 98.1; O2SAT 94
[2023-06-04] MEDS: HEPARIN SOD (PORCINE) 5000UNITS/ML 1ML VIAL/SYRINGE SQ SCH ×2 (08:43→21:00)
[2023-06-04] MEDS: INSULIN LISPRO (NovoLOG) PER UNIT SC SCH ×4 (08:43→21:00)
[2023-06-04] MEDS: METOPROLOL TARTRATE 100MG TAB PO SCH ×2 (08:44→22:01)
[2023-06-04] MEDS: AUGMENTIN 500MG TAB PO SCH ×2 (08:44→21:59)
[2023-06-04] MEDS: ASPIRIN 81MG ENTERIC TABLET PO SCH (08:44)
[2023-06-04] MEDS: LACTOBACILLUS ACIDOPHILUS CAP (BACID) PO SCH ×4 (08:44→21:59)
[2023-06-04] MEDS: ATORVASTATIN 20 MG TAB PO SCH (08:44)
[2023-06-04] MEDS: SODIUM CHLORIDE 0.9% NASAL GEL 15GM (AYR) SCH ×4 (08:45→21:00)
[2023-06-04] MEDS: DARBEPOETIN 200MCG/0.4ML *NON-DIALYSIS* SYRINGE SC SCH (08:55)
[2023-06-04 14:00] VITALS: BP 140/68; TEMP 99.5; O2SAT 93
[2023-06-04] MEDS: LEVEMIR (INSULIN DETEMIR) 1 UNITS/0.01ML SC SCH (21:00)
[2023-06-05 06:16] VITALS: BP 146/69; TEMP 97.3; O2SAT 90
[2023-06-05] MEDS: HEPARIN SOD (PORCINE) 5000UNITS/ML 1ML VIAL/SYRINGE SQ SCH (09:11)
[2023-06-05] MEDS: INSULIN LISPRO (NovoLOG) PER UNIT SC SCH ×2 (09:11→13:35)
[2023-06-05 09:12] VITALS: BP 146/69
[2023-06-05] MEDS: ATORVASTATIN 20 MG TAB PO SCH (09:12)
[2023-06-05] MEDS: ASPIRIN 81MG ENTERIC TABLET PO SCH (09:12)
[2023-06-05] MEDS: METOPROLOL TARTRATE 100MG TAB PO SCH (09:12)
[2023-06-05] MEDS: LACTOBACILLUS ACIDOPHILUS CAP (BACID) PO SCH ×2 (09:12→13:34)
[2023-06-05] MEDS: AUGMENTIN 500MG TAB PO SCH (09:12)
[2023-06-05] MEDS: SODIUM CHLORIDE 0.9% NASAL GEL 15GM (AYR) SCH ×2 (09:13→13:00)
[2023-06-05] MEDS ORDERED: AMOX500T2 PO (11:46)
== END 2023-06-05 15:17 | disposition home health service (06) | DRG 853 ==
LOC: EEVIPCON 17:04 → M MSPAV 17:04 → M PCU 05-20 17:15 → M MSPAV 05-25 05:50
PROVIDERS: ADMIT Family Medicine; ATTEND Family Medicine
PROC: 0JBR0ZZ Excision of Left Foot Subcutaneous Tissue and Fascia, Open Approach (ICD-10-PCS; principal; 2023-05-14 16:30)
PROC: 30233N1 Transfusion of Nonautologous Red Blood Cells into Peripheral Vein, Percutaneous Approach (ICD-10-PCS; 2023-05-16)
PROC: 0JH63XZ Insertion of Tunneled Vascular Access Device into Chest Subcutaneous Tissue and Fascia, Percutaneous Approach (ICD-10-PCS; 2023-05-20)
PROC: 02H633Z Insertion of Infusion Device into Right Atrium, Percutaneous Approach (ICD-10-PCS; 2023-05-20)
PROC: 0J9R0ZZ Drainage of Left Foot Subcutaneous Tissue and Fascia, Open Approach (ICD-10-PCS; 2023-05-21)
PROC: 5A1D70Z Performance of Urinary Filtration, Intermittent, Less than 6 Hours Per Day (ICD-10-PCS; 2023-05-21)
PROC: 0JBR0ZZ Excision of Left Foot Subcutaneous Tissue and Fascia, Open Approach (ICD-10-PCS; 2023-05-30)
PROC: 0JPT33Z Removal of Infusion Device from Trunk Subcutaneous Tissue and Fascia, Percutaneous Approach (ICD-10-PCS; 2023-05-30)
PROC: 07BJ3ZX Excision of Left Inguinal Lymphatic, Percutaneous Approach, Diagnostic (ICD-10-PCS; 2023-06-02)
DX: A41.9 Sepsis, unspecified organism (principal); N17.0 Acute kidney failure with tubular necrosis; J15.6 Pneumonia due to other Gram-negative bacteria; J96.01 Acute respiratory failure with hypoxia; N18.4 Chronic kidney disease, stage 4 (severe); M86.8X7 Other osteomyelitis, ankle and foot; L02.612 Cutaneous abscess of left foot; L97.528 Non-pressure chronic ulcer of other part of left foot with other specified severity; E87.1 Hypo-osmolality and hyponatremia; E87.20 Acidosis, unspecified; L03.116 Cellulitis of left lower limb; K52.1 Toxic gastroenteritis and colitis; I12.9 Hypertensive chronic kidney disease with stage 1 through stage 4 chronic kidney disease, or unspecified chronic kidney disease; E11.69 Type 2 diabetes mellitus with other specified complication; E11.610 Type 2 diabetes mellitus with diabetic neuropathic arthropathy; E78.5 Hyperlipidemia, unspecified; E11.22 Type 2 diabetes mellitus with diabetic chronic kidney disease; I34.1 Nonrheumatic mitral (valve) prolapse; F40.240 Claustrophobia; B95.0 Streptococcus, group A, as the cause of diseases classified elsewhere; D63.1 Anemia in chronic kidney disease; E11.621 Type 2 diabetes mellitus with foot ulcer; R65.20 Severe sepsis without septic shock; K44.9 Diaphragmatic hernia without obstruction or gangrene; E11.65 Type 2 diabetes mellitus with hyperglycemia; R59.0 Localized enlarged lymph nodes; E11.42 Type 2 diabetes mellitus with diabetic polyneuropathy; R19.04 Left lower quadrant abdominal swelling, mass and lump; I25.10 Atherosclerotic heart disease of native coronary artery without angina pectoris; T36.95XA Adverse effect of unspecified systemic antibiotic, initial encounter; N83.202 Unspecified ovarian cyst, left side; B95.1 Streptococcus, group B, as the cause of diseases classified elsewhere; B95.61 Methicillin susceptible Staphylococcus aureus infection as the cause of diseases classified elsewhere; E11.628 Type 2 diabetes mellitus with other skin complications; N83.201 Unspecified ovarian cyst, right side; Z88.2 Allergy status to sulfonamides; Z88.8 Allergy status to other drugs, medicaments and biological substances; Z90.49 Acquired absence of other specified parts of digestive tract; Z79.899 Other long term (current) drug therapy; Z89.511 Acquired absence of right leg below knee; Z79.82 Long term (current) use of aspirin; Z79.4 Long term (current) use of insulin

== ENCOUNTER → 2023-07-01 | Outpatient (CLI) | payer MEDICARE ==
[~2023-07-01] MED LIST changes: +ACET1TAB55 PO; +AMLO1TAB25 PO; +AMOX500T2 PO; +ASPI81TA26 PO; +ATOR40TA75 PO; +FURO40TA2 PO; +JARD1TAB PO; +METO100T5 PO
[2023-07-01 14:09] LABS: BASO # 0.1 10^3/uL (0.0-0.2); BASO % 0.8 % (0.0-1.0); EOS # 0.6 10^3/uL (0.0-0.5); EOS % 4.3 % (0.0-3.0); HEMATOCRIT 33.7 % (36.0-47.0); HEMOGLOBIN 10.3 g/dl (12.0-15.5); LYMPH # 2.8 10^3/uL (1.5-5.0); LYMPH % 20.5 % (24.0-44.0); MEAN CORPUSCULAR HEMOGLOBIN 26.3 pg (27.0-33.0); MEAN CORPUSCULAR HGB CONC 30.6 g/dl (32.0-36.5); MEAN CORPUSCULAR VOLUME 86.2 fl (80.0-96.0); MONO % 7.3 % (2.0-8.0); NEUTROPHILS # 8.9 10^3/uL (1.5-8.5); NEUTROPHILS % 66.6 % (36.0-66.0); PLATELET COUNT, AUTOMATED 478 10^3/uL (150-450); RED BLOOD COUNT 3.91 10^6/uL (4.00-5.40); WHITE BLOOD COUNT 13.4 10^3/uL (4.0-10.0)
[2023-07-01 14:21] LABS: C REACTIVE PROTEIN QUANTITATIV < 0.40 MG/DL (<1.0)
[2023-07-01 14:23] LABS: ALBUMIN 3.6 G/DL (3.2-5.2); ALKALINE PHOSPHATASE 144 U/L (46-116); ALT/SGPT 16 U/L (7.0-40); AST/SGOT 10 U/L (<34); BILIRUBIN,TOTAL 0.3 MG/DL (0.3-1.2); BLOOD UREA NITROGEN 39 MG/DL (9-23); CALCIUM LEVEL 9.2 MG/DL (8.3-10.6); CARBON DIOXIDE LEVEL 28 MMOL/L (20-31); CHLORIDE LEVEL 100 MMOL/L (98-107); CREATININE FOR GFR 2.04 MG/DL (0.55-1.30); GLOMERULAR FILTRATION RATE 26.1 (>45); GLUCOSE, FASTING 125 MG/DL (74-106); POTASSIUM SERUM 4.5 MMOL/L (3.5-5.1); SODIUM LEVEL 139 MMOL/L (136-145); TOTAL PROTEIN 8.5 G/DL (5.7-8.2)
== END ==
LOC: M PLALAB 10:32
PROVIDERS: ATTEND Internal Medicine Infectious Disease
DX: D64.9 Anemia, unspecified (principal)

== ENCOUNTER → 2023-07-01 | Outpatient (CLI) | payer MEDICARE ==
[2023-07-01 14:08] LABS: BASO # 0.1 10^3/uL (0.0-0.2); BASO % 0.7 % (0.0-1.0); EOS # 0.6 10^3/uL (0.0-0.5); EOS % 4.5 % (0.0-3.0); HEMOGLOBIN 10.3 g/dl (12.0-15.5); LYMPH # 2.7 10^3/uL (1.5-5.0); LYMPH % 20.4 % (24.0-44.0); MEAN CORPUSCULAR HEMOGLOBIN 26.1 pg (27.0-33.0); MEAN CORPUSCULAR HGB CONC 30.3 g/dl (32.0-36.5); MEAN CORPUSCULAR VOLUME 86.3 fl (80.0-96.0); MONO % 7.5 % (2.0-8.0); NEUTROPHILS # 8.9 10^3/uL (1.5-8.5); NEUTROPHILS % 66.4 % (36.0-66.0); PLATELET COUNT, AUTOMATED 473 10^3/uL (150-450); RED BLOOD COUNT 3.94 10^6/uL (4.00-5.40); WHITE BLOOD COUNT 13.4 10^3/uL (4.0-10.0)
[2023-07-01 14:24] LABS: CALCIUM LEVEL 9.2 MG/DL (8.3-10.6); CREATININE FOR GFR 1.98 MG/DL (0.55-1.30); PERCENT SATURATION 15.3 % (13.2-45.0); POTASSIUM SERUM 4.7 MMOL/L (3.5-5.1)
[2023-07-01 14:30] LABS: FERRITIN 165.3 NG/ML (7.3-270.7)
== END ==
LOC: M PLALAB 10:34
PROVIDERS: ATTEND Family Medicine
DX: D64.9 Anemia, unspecified (principal)

== ENCOUNTER → 2023-07-16 | Outpatient (CLI) | payer MEDICARE ==
[2023-07-16 18:20] LABS: LDH LACTATE DEHYDROGENASE 197 U/L (120-246)
[2023-07-16 18:25] LABS: CARCINOEMBRYONIC ANTIGEN < 2.0 NG/ML (<2.5)
[2023-07-16 18:40] LABS: CA19-9 TUMOR MARKER,CARBOHYDRA < 1.2 U/ML (<35.0)
== END ==
LOC: M PLALAB 15:29
PROVIDERS: ATTEND Obstetrics & Gynecology
DX: N83.201 Unspecified ovarian cyst, right side (principal); R19.03 Right lower quadrant abdominal swelling, mass and lump

== ENCOUNTER → 2023-07-16 | Outpatient (CLI) | payer MEDICARE | LOC: M WHC 15:19 | PROVIDERS: ATTEND Obstetrics & Gynecology | DX: N83.202 Unspecified ovarian cyst, left side (principal); N83.201 Unspecified ovarian cyst, right side; R19.03 Right lower quadrant abdominal swelling, mass and lump ==

== ENCOUNTER → 2023-11-05 | Outpatient (REF) | payer MEDICARE | LOC: M LAB REF 17:06 | PROVIDERS: ATTEND Podiatrist | DX: L03.116 Cellulitis of left lower limb (principal); B95.61 Methicillin susceptible Staphylococcus aureus infection as the cause of diseases classified elsewhere ==

== ENCOUNTER → 2024-07-12 | Outpatient (REF) | payer MEDICARE, OTHER ==
[~2024-07-12] MED LIST changes: -DOXY150C3 PO; +DOXY150C5 PO
== END ==
LOC: M LAB REF 16:26
PROVIDERS: ATTEND Podiatrist
DX: E11.621 Type 2 diabetes mellitus with foot ulcer (principal)